=== PATIENT | female | born 1980 | race Caucasian/White ===

== ENCOUNTER 2016-08-08 14:39 | Inpatient (IN) | payer BC ==
[2016-08-08] MEDS ORDERED: HYDROCODONE/ACETAMINOPHEN 5-325 MG TABLET PO ONE (15:50)
--- NOTE | 2016-08-08 15:51 | ER Document Report ---
ED Medical Screen (RME) - General Stated Complaint: ABDOMINAL PAIN Mode of Arrival: Ambulatory Information source: Patient Notes: 35 y/o F presents to ED c/o LLQ abd pain since yesterday evening. Denies fever, n/v, hematuria, or blood in stool. I have greeted and performed a rapid initial assessment of this patient. A comprehensive ED assessment and evaluation of the patient, analysis of test results and completion of the medical decision making process will be conducted by additional ED providers. TRAVEL OUTSIDE OF THE [place] IN LAST 30 DAYS: No - Related Data Allergies/Adverse Reactions: No Known Allergies Allergy (Verified 08/08/16 15:48) Past Medical History - Past Medical History Cardiac Medical History: Denies: Hx Atrial Fibrillation, Hx Congestive Heart Failure, Hx Coronary Artery Disease, Hx Heart Attack, Hx Hypercholesterolemia, Hx Hypertension, Hx Peripheral Vascular Disease, Hx Heart Murmur Renal/ Medical History: Denies: Hx Ovarian Cysts, Hx Pelvic Inflammatory Disease Malignancy Medical History: Denies: Hx Breast Cancer, Hx Cervical Cancer, Hx Ovarian Cancer Past Surgical History: Reports: Hx Tonsillectomy. Denies: Hx Appendectomy, Hx Bowel Surgery, Hx Section, Hx Cholecystectomy, Hx Coronary Artery Bypass Graft, Hx Gastric Bypass Surgery, Hx Herniorrhaphy, Hx Hysterectomy, Hx Mastectomy, Hx Pacemaker, Hx Tubal Ligation - Immunizations Hx Diphtheria, Pertussis, Tetanus Vaccination: Yes Physical Exam - Vital signs Vitals: Temp Pulse Resp BP Pulse Ox 98.9 F 105 H 20 139/79 H 98 08/08/16 15:21 08/08/16 15:21 08/08/16 15:21 08/08/16 15:21 08/08/16 15:21 - General General appearance: Alert In distress: None - Respiratory Respiratory status: No respiratory distress Course - Vital Signs Vital signs: Temp Pulse Resp BP Pulse Ox 98.9 F 105 H 20 139/79 H 98 08/08/16 15:21 08/08/16 15:21 08/08/16 15:21 08/08/16 15:21 08/08/16 15:21
[2016-08-08] MEDS ORDERED: ONDANSETRON 4 MG TAB.RAPDIS PO ONE (16:06)
[2016-08-08 16:44] LABS: ABSOLUTE BASOPHILS # (AUTO) 0.1 10^3/uL (0.0-0.2); ABSOLUTE EOSINOPHILS # (AUTO) 0.1 10^3/uL (0.0-0.6); ABSOLUTE LYMPHOCYTES (AUTO) 1.8 10^3/uL (0.5-4.7); ABSOLUTE MONOCYTES (AUTO) 0.8 10^3/uL (0.1-1.4); ABSOLUTE NEUT (AUTO) 12.6 10^3/uL (1.7-8.2); BASOPHILS % (AUTO) 0.4 % (0-2); EOSINOPHILS % (AUTO) 0.4 % (0-6); LYMPHOCYTES % (AUTO) 11.6 % (13-45); MEAN CORPUSCULAR HEMOGLOBIN 27.1 pg (27.0-33.4); MEAN CORPUSCULAR HGB CONC 33.4 g/dL (32.0-36.0); MEAN CORPUSCULAR VOLUME 81 fl (80-97); MONOCYTES % (AUTO) 5.5 % (3-13); RED BLOOD COUNT 5.18 10^6/uL (3.72-5.28); RED CELL DISTRIBUTION WIDTH 14.4 % (11.5-14.0); SEGMENTED NEUTROPHILS % (AUTO) 82.1 % (42-78); WHITE BLOOD COUNT 15.3 10^3/uL (4.0-10.5)
[2016-08-08 16:50] LABS: APPEARANCE,URINE SLIGHTLY-CLOUDY; BILIRUBIN,URINE NEGATIVE (NEGATIVE); GLUCOSE, URINE NEGATIVE (NEGATIVE); KETONES,URINE NEGATIVE (NEGATIVE); LEUKOCYTE ESTERASE,URINE MODERATE (NEGATIVE); NITRITE,URINE NEGATIVE (NEGATIVE); PROTEIN,URINE NEGATIVE (NEGATIVE); URINE SPECIFIC GRAVITY 1.021; UROBILINOGEN,URINE NEGATIVE mg/dL (<2.0)
[2016-08-08 17:02] LABS: ALANINE AMINOTRANSFERASE 37 U/L (9-52); ALBUMIN 3.9 g/dL (3.5-5.0); ALKALINE PHOSPHATASE 86 U/L (38-126); ANION GAP 12 (5-19); ASPARTATE AMINO TRANSFERASE 21 U/L (14-36); BILIRUBIN,TOTAL 0.5 mg/dL (0.2-1.3); BLOOD UREA NITROGEN 11 mg/dL (7-20); CALCIUM 9.5 mg/dL (8.4-10.2); CARBON DIOXIDE 26 mmol/L (22-30); CHLORIDE 101 mmol/L (98-107); GLUCOSE 90 mg/dL (75-110); LIPASE 44.3 U/L (23-300); POTASSIUM 4.2 mmol/L (3.6-5.0); SODIUM 138.8 mmol/L (137-145); TOTAL PROTEIN 7.5 g/dL (6.3-8.2)
[2016-08-08] MEDS ORDERED: KETOROLAC TROMETHAMINE INJ/PF 30 MG/1 ML SDV IV ONE (17:45)
[2016-08-08] MEDS ORDERED: ONDANSETRON HCL INJ/PF 4 MG/2 ML SDV IV ONE (17:46)
--- NOTE | 2016-08-08 17:57 | ER Document Report ---
ED GI/ - General Chief Complaint: Possible Kidney Stone Stated Complaint: ABDOMINAL PAIN Mode of Arrival: Ambulatory Notes: Patient is complaining of pain in the left lower quadrant of her abdomen that goes around towards the midline suprapubic area, but not to the right of the midline since yesterday. Has never experiences pain before. It's constant and sharp. She is not had any nausea or vomiting or diarrhea. Her last bowel movement was at noon today and it was normal. No blood in stools. Has never been diagnosed with any gastrointestinal disorders such as colitis, diverticulitis, etc. Did have some blood in her stool 10 years ago and had a colonoscopy and some polyps removed. Has not had any follow-up studies. Patient denies any UTI symptoms and no history of kidney stones. Has not noted any fever. LMP July 07. On no control. Surgery to remove a fibroid from her uterus in December,. TRAVEL OUTSIDE OF THE [place] IN LAST 30 DAYS: No - Related Data Allergies/Adverse Reactions: No Known Allergies Allergy (Verified 08/08/16 15:48) Past Medical History - General Information source: Patient - Social History Smoking Status: Never Smoker Chew tobacco use (# tins/day): No Frequency of alcohol use: None Drug Abuse: None Family History: Reviewed & Not Pertinent Patient has suicidal ideation: No Patient has homicidal ideation: No Malignancy Medical History: Denies: Hx Cervical Cancer, Hx Ovarian Cancer GI Medical History: Reports: Hx Colonoscopy - Found polyps in 2006. Denies: Hx Ulcerative Colitis Past Surgical History: Reports: Hx Gynecologic Surgery - Removal of fibroid 2015, Hx Tonsillectomy - Immunizations Hx Diphtheria, Pertussis, Tetanus Vaccination: Yes Review of Systems - Review of Systems Notes: REVIEW OF SYSTEMS: CONSTITUTIONAL : Denies fever. EENT: Denies eye, ear, nose or mouth or throat pain or other symptoms. CARDIOVASCULAR: Denies chest pain. RESPIRATORY: Denies cough, chest congestion, or shortness of breath. GASTROINTESTINAL: See history of present illness. GENITOURINARY: Denies difficulty or painful urinating, urinary frequency, blood in urine. MUSCULOSKELETAL: Denies back or neck pain. Denies joint pain or swelling. SKIN: Denies rash or skin lesions. NEUROLOGICAL: Denies LOC or altered mental status. Denies headache. Denies sensory loss or motor deficits. ALL OTHER SYSTEMS REVIEWED AND NEGATIVE. Physical Exam - Vital signs Vitals: Temp Pulse Resp BP Pulse Ox 98.9 F 105 H 20 139/79 H 98 08/08/16 15:21 08/08/16 15:21 08/08/16 15:21 08/08/16 15:21 08/08/16 15:21 Interpretation: Normal, Tachycardic - Minimal at 105. - Notes Notes: PHYSICAL EXAMINATION: GENERAL: Well-appearing, in no acute distress. Appears to be uncomfortable to move. Holding left lower quadrant. Vital signs are normal except for heart rate 105. Afebrile. HEAD: Atraumatic, normocephalic. NECK: Normal range of motion, supple. LUNGS: Breath sounds clear and equal bilaterally. HEART: Regular rate and rhythm without murmurs. ABDOMEN: Tender in the left lower quadrant of the abdomen with some guarding. No rebound. No masses felt. BACK: No tenderness throughout entire back. EXTREMITIES: Normal range of motion without pain. SKIN: Warm, dry, no rashes. Course - Re-evaluation Re-evalutation: 08/08/16 21:[address] Joaquin, who is on-call for surgery, and he will be seeing the patient. Antibiotics are being started. More pain medications administered. - Vital Signs Vital signs: Temp Pulse Resp BP Pulse Ox 98.9 F 105 H 20 139/79 H 98 08/08/16 15:21 08/08/16 15:21 08/08/16 15:21 08/08/16 15:21 08/08/16 15:21 - Laboratory Result Diagrams: 08/08/16 16:28 08/08/16 16:28 Laboratory results interpreted by me: 08/08/16 08/08/16 16:28 16:28 WBC 15.3 H RDW 14.4 H Seg Neutrophils % 82.1 H Lymphocytes % 11.6 L Absolute Neutrophils 12.6 H Ur Leukocyte Esterase MODERATE H - Diagnostic Test Radiology reviewed: Image reviewed, Reports reviewed - CT scan of abdomen and pelvis shows diverticulitis of the left descending colon with possible air leakage consistent with a small perforation. Discharge - Discharge Clinical Impression: Diverticulitis of intestine Qualifiers: Diverticulitis site: large intestine Diverticulitis bleeding: without bleeding Diverticulitis complication: with perforation Qualified Code(s): K57.20 - Diverticulitis of large intestine with perforation and abscess without bleeding Condition: Stable Disposition: ADMITTED INPATIENT Admitting Provider: Surgicalist Unit Admitted: Surgical Floor
[2016-08-08] MEDS ORDERED: AMPICILLIN SOD/SULBACTAM 3 GM VIAL IV ONE (21:17)
[2016-08-08] MEDS ORDERED: MORPHINE SULFATE 10 MG/ML INJ IV ONE (21:17)
[2016-08-08] MEDS ORDERED: OXYCODONE-ACETAMINOPHEN 5-325 MG TABLET PO PRN (21:41)
[2016-08-08] MEDS: AMPICILLIN SODIUM/SULBACTAM NA 3 GM in NORMAL SALINE 100 ML IV SCH (22:32)
--- NOTE | 2016-08-08 23:33 | HISTORY AND PHYSICAL E ---
History and Physical NAME: WESTON YUSUF : 1980 AGE: 35Y ADMITTED: 08/08/2016 ROOM: ED41 CHIEF COMPLAINT: Acute diverticulitis with perforation. HISTORY OF PRESENT ILLNESS: The patient is a 35-year-old white female previously healthy with acute onset left lower quadrant abdominal pain associated with some anorexia. No nausea or vomiting. Last bowel movement today normal. She denies history of previous episodes, or other gastrointestinal problems. She did have a remote history of a GI bleed 10 years ago and underwent colonoscopy with polyp removal. In the emergency department, she had tenderness localized over the left lower quadrant, and leukocytosis at 15,000. She underwent CT scan of the abdomen and pelvis with IV and oral contrast and was found to have evidence of acute diverticulitis of sigmoid colon with pericolonic perforation, contained. She was advised admission to the surgical service. PAST MEDICAL HISTORY: Significant for: 1. Colon polyp. 2. Fibroid uterus. PAST SURGICAL HISTORY: Significant for myomectomy of the uterus by Dr. Mason December 2015. ALLERGIES: None known. MEDICATIONS: None. LOCAL MEDICAL DOCTOR: None. SOCIAL HISTORY: Patient does not smoke or drink. IMMUNIZATIONS: Up to date. REVIEW OF SYSTEMS: CONSTITUTIONAL: Patient denies. CARDIOVASCULAR: Patient denies. RESPIRATORY: Patient denies. GASTROINTESTINAL: As per HPI. GENITOURINARY: Patient denies. PHYSICAL EXAMINATION: Patient examined in the emergency department VITAL SIGNS: Heart rate is 88, other vital signs stable. GENERAL: No acute distress. HEAD/EYES: Without icterus. NECK: No adenopathy. LUNGS: Clear to auscultation bilaterally. HEART: Without murmur or gallop. ABDOMEN: Soft but it is tender in the left lower quadrant with guarding. Bowel sounds hypoactive. EXTREMITIES: Without deformity. SKIN: Warm and dry. LABORATORY PROFILE: White blood cell count 15,000, hemoglobin of 14. Electrolytes within normal limits. Urinalysis unremarkable. DIAGNOSTICS: CT scan of the abdomen and pelvis with IV and with oral contrast shows no evidence of abscess; endometrial fibroid. Pericolonic gas around the sigmoid colon laterally with inflammatory changes. There is no evidence of obstruction. IMPRESSION: 1. Acute diverticulitis complicated by pericolonic air consistent with limited perforation. 2. Uterine fibroid. RECOMMENDATIONS: The patient will be admitted to the surgical service, kept n.p.o. on IV fluids, intravenous antibiotics and followed clinically. Should her clinical course deteriorate, emergent surgery may be required. This was explained to the patient and her . They both understood and agreed to proceed. DICTATING PHYSICIAN: BRUCE CARRENO M.D. [id number] PHY#: [id number] ID: [id number] JOB#: [id number] ACCT: [id number] cc:Jorge SHEPPARD MD, M.D. > MTDD
[2016-08-09] MEDS: RINGERS SOLUTION,LACTATED 1,000 ML IV PRN ×2 (01:28→21:29)
[2016-08-09] MEDS: ONDANSETRON HCL INJ/PF 4 MG/2 ML SDV IV PRN ×3 (03:52→17:18)
[2016-08-09] MEDS: OXYCODONE-ACETAMINOPHEN 5-325 MG TABLET PO PRN ×3 (03:52→17:17)
[2016-08-09] MEDS ORDERED: AMPICILLIN SOD/SULBACTAM 3 GM VIAL ONE (05:41)
[2016-08-09] MEDS: AMPICILLIN SODIUM/SULBACTAM NA 3 GM in NORMAL SALINE 100 ML IV SCH ×3 (05:57→21:29)
--- NOTE | 2016-08-09 10:09 | PDOC PROGRESS REPORT ---
Subjective Progress Note for:: 08/09/16 Subjective:: c/o pain lower abdomen, mostly left side. Also some nausea. Physical Exam Vital Signs: Temp Pulse Resp BP Pulse Ox 97.7 F 104 H 18 112/57 L 96 08/09/16 07:12 08/09/16 07:12 08/09/16 07:12 08/09/16 07:12 08/09/16 07:12 Intake & Output 08/08/16 08/09/16 08/10/16 06:59 06:59 06:59 Intake Total 240 Output Total 100 Balance 140 Weight 64.7 kg GI/Abdominal exam: PRESENT: ascites, diminished bowel sounds, distended, firm, guarding, hernia, hyperactive bowel sounds, hypoactive bowel sounds, mass, Hernandez's sign, normal bowel sounds, organolmegaly, rebound, rigid, soft, tenderness, other - tenderness lower abdomen , with localized rebound. Results Impressions: Abdomen/Pelvis CT 08/08/16 00:00 IMPRESSION: Diverticulitis in the lower descending colon with small foci of extraluminal gas adjacent to the inflamed diverticulum. No focal abscess. Small amounts of pelvic free fluid. Consider surgical consultation/follow-up. Assessment & Plan - Plan Summary Plan Summary: Acute Diverticulitis with localized perforation, still has pain and tenderness, continue trial of conservative therapy with IV antibiotics if no progress or deteriorates - for surgery D/W PATIENT.
[2016-08-09 11:30] LABS: ABSOLUTE LYMPHOCYTES (AUTO) 1.1 10^3/uL (0.5-4.7); ABSOLUTE NEUT (AUTO) 14.2 10^3/uL (1.7-8.2); BASOPHILS % (AUTO) 0.1 % (0-2); EOSINOPHILS % (AUTO) 0.1 % (0-6); HEMATOCRIT 37.3 % (36.0-47.0); HEMOGLOBIN 12.1 g/dL (12.0-15.5); LYMPHOCYTES % (AUTO) 6.7 % (13-45); MEAN CORPUSCULAR HEMOGLOBIN 26.4 pg (27.0-33.4); MEAN CORPUSCULAR HGB CONC 32.5 g/dL (32.0-36.0); MEAN CORPUSCULAR VOLUME 81 fl (80-97); MONOCYTES % (AUTO) 6.1 % (3-13); RED CELL DISTRIBUTION WIDTH 14.1 % (11.5-14.0); WHITE BLOOD COUNT 16.4 10^3/uL (4.0-10.5)
[2016-08-09 11:48] LABS: ANION GAP 11 (5-19); BLOOD UREA NITROGEN 6 mg/dL (7-20); CALCIUM 8.4 mg/dL (8.4-10.2); CARBON DIOXIDE 24 mmol/L (22-30); CHLORIDE 102 mmol/L (98-107); CREATININE RESULT 0.56 mg/dL (0.52-1.25); GLUCOSE 84 mg/dL (75-110); POTASSIUM 3.6 mmol/L (3.6-5.0); SODIUM 137.1 mmol/L (137-145)
[2016-08-10] MEDS: AMPICILLIN SODIUM/SULBACTAM NA 3 GM in NORMAL SALINE 100 ML IV SCH ×2 (05:29→15:09)
[2016-08-10] MEDS: RINGERS SOLUTION,LACTATED 1,000 ML IV PRN ×2 (05:29→14:59)
[2016-08-10] MEDS: OXYCODONE-ACETAMINOPHEN 5-325 MG TABLET PO PRN (05:31)
[2016-08-10] MEDS: ONDANSETRON HCL INJ/PF 4 MG/2 ML SDV IV PRN (05:32)
[2016-08-10 10:29] LABS: ABSOLUTE EOSINOPHILS # (AUTO) 0.1 10^3/uL (0.0-0.6); ABSOLUTE LYMPHOCYTES (AUTO) 1.5 10^3/uL (0.5-4.7); ABSOLUTE MONOCYTES (AUTO) 0.6 10^3/uL (0.1-1.4); BASOPHILS % (AUTO) 0.1 % (0-2); EOSINOPHILS % (AUTO) 0.7 % (0-6); HEMATOCRIT 34.1 % (36.0-47.0); HEMOGLOBIN 11.3 g/dL (12.0-15.5); HGB HCT DIFFERENCE -0.2; LYMPHOCYTES % (AUTO) 13.4 % (13-45); MEAN CORPUSCULAR VOLUME 82 fl (80-97); MONOCYTES % (AUTO) 5.7 % (3-13); RED BLOOD COUNT 4.17 10^6/uL (3.72-5.28); RED CELL DISTRIBUTION WIDTH 14.2 % (11.5-14.0); SEGMENTED NEUTROPHILS % (AUTO) 80.1 % (42-78); WHITE BLOOD COUNT 11.3 10^3/uL (4.0-10.5)
--- NOTE | 2016-08-10 13:14 | PDOC PROGRESS REPORT ---
Subjective Progress Note for:: 08/10/16 Subjective:: Still has Abdominal painleft Physical Exam Vital Signs: Temp Pulse Resp BP Pulse Ox 98.1 F 68 20 101/55 L 98 08/10/16 09:00 08/10/16 09:00 08/10/16 09:00 08/10/16 09:00 08/10/16 09:00 Intake & Output 08/09/16 08/10/16 08/11/16 06:59 06:59 06:59 Intake Total 0 Output Total 1200 Balance -1200 Weight 64.7 kg GI/Abdominal exam: PRESENT: other - severe localized tenderness left lower quadrant. Results Laboratory Results: 08/10/16 10:13 08/10/16 10:13 WBC 11.3 H RBC 4.17 Hgb 11.3 L Hct 34.1 L MCV 82 MCH 27.0 MCHC 33.0 RDW 14.2 H Plt Count 211 Seg Neutrophils % 80.1 H Lymphocytes % 13.4 Monocytes % 5.7 Eosinophils % 0.7 Basophils % 0.1 Absolute Neutrophils 9.0 H Absolute Lymphocytes 1.5 Absolute Monocytes 0.6 Absolute Eosinophils 0.1 Absolute Basophils 0.0 Impressions: Abdomen/Pelvis CT 08/08/16 00:00 IMPRESSION: Diverticulitis in the lower descending colon with small foci of extraluminal gas adjacent to the inflamed diverticulum. No focal abscess. Small amounts of pelvic free fluid. Consider surgical consultation/follow-up. Assessment & Plan - Plan Summary Plan Summary: Stable , not much progress , possible surgery if no further progress.
[2016-08-10 14:14] LABS: ANION GAP 10 (5-19); BLOOD UREA NITROGEN 5 mg/dL (7-20); CALCIUM 8.7 mg/dL (8.4-10.2); CARBON DIOXIDE 25 mmol/L (22-30); CHLORIDE 104 mmol/L (98-107); CREATININE RESULT 0.54 mg/dL (0.52-1.25); GLUCOSE 71 mg/dL (75-110); SODIUM 138.5 mmol/L (137-145)
[2016-08-10 14:56] LABS: ABSOLUTE LYMPHOCYTES (AUTO) 1.1 10^3/uL (0.5-4.7); ABSOLUTE MONOCYTES (AUTO) 0.4 10^3/uL (0.1-1.4); ABSOLUTE NEUT (AUTO) 12.5 10^3/uL (1.7-8.2); BASOPHILS % (AUTO) 0.1 % (0-2); EOSINOPHILS % (AUTO) 0.3 % (0-6); HEMATOCRIT 35.6 % (36.0-47.0); HEMOGLOBIN 11.8 g/dL (12.0-15.5); HGB HCT DIFFERENCE -0.2; MEAN CORPUSCULAR HEMOGLOBIN 27.1 pg (27.0-33.4); MEAN CORPUSCULAR HGB CONC 33.2 g/dL (32.0-36.0); MEAN CORPUSCULAR VOLUME 82 fl (80-97); MONOCYTES % (AUTO) 2.6 % (3-13); RED BLOOD COUNT 4.36 10^6/uL (3.72-5.28); RED CELL DISTRIBUTION WIDTH 14.1 % (11.5-14.0)
[2016-08-10] MEDS ORDERED: OXYCODONE-ACETAMINOPHEN 5-325 MG TABLET ONE (18:15)
[2016-08-10] MEDS ORDERED: ONDANSETRON HCL INJ/PF 4 MG/2 ML SDV ONE (18:15)
[2016-08-10] MEDS ORDERED: OXYCODONE-ACETAMINOPHEN 5-325 MG TABLET PO PRN ×2 (21:13→21:14)
[2016-08-10] MEDS ORDERED: MAGNESIUM CITRATE 296 ML BOTTLE PO ONE (22:00)
[2016-08-11] MEDS: RINGERS SOLUTION,LACTATED 1,000 ML IV PRN ×2 (00:45→09:57)
[2016-08-11] MEDS: AMPICILLIN SODIUM/SULBACTAM NA 3 GM in NORMAL SALINE 100 ML IV SCH ×2 (00:48→06:34)
[2016-08-11 05:55] LABS: HEMATOCRIT 34.6 % (36.0-47.0); HEMOGLOBIN 11.5 g/dL (12.0-15.5); HGB HCT DIFFERENCE -0.1; MEAN CORPUSCULAR HEMOGLOBIN 26.9 pg (27.0-33.4); MEAN CORPUSCULAR HGB CONC 33.3 g/dL (32.0-36.0); MEAN CORPUSCULAR VOLUME 81 fl (80-97); RED BLOOD COUNT 4.28 10^6/uL (3.72-5.28); RED CELL DISTRIBUTION WIDTH 14.2 % (11.5-14.0); WHITE BLOOD COUNT 10.8 10^3/uL (4.0-10.5)
[2016-08-11 06:24] LABS: ANION GAP 10 (5-19); BLOOD UREA NITROGEN 3 mg/dL (7-20); CARBON DIOXIDE 27 mmol/L (22-30); CHLORIDE 104 mmol/L (98-107); CREATININE RESULT 0.49 mg/dL (0.52-1.25); GLUCOSE 84 mg/dL (75-110); POTASSIUM 3.7 mmol/L (3.6-5.0); SODIUM 140.5 mmol/L (137-145)
[2016-08-11] MEDS ORDERED: GLYCOPYRROLATE INJ 0.4 MG/2 ML VIAL ONE (08:21)
[2016-08-11] MEDS ORDERED: METOCLOPRAMIDE HCL INJ/PF 10 MG/2 ML SDV ONE (08:21)
[2016-08-11] MEDS ORDERED: NEOSTIGMINE METHYLSULFATE 10 MG/10 ML VIAL ONE (08:21)
[2016-08-11] MEDS ORDERED: ROCURONIUM BROMIDE INJ 50 MG/5 ML VIAL IV ONE (08:21)
[2016-08-11] MEDS ORDERED: DEXAMETHASONE SOD PHOSPHATE INJ 4 MG/1 ML VIAL ONE (08:21)
[2016-08-11] MEDS ORDERED: SUCCINYLCHOLINE CHLORIDE INJ 200 MG/10 ML VIAL ONE (08:21)
[2016-08-11] MEDS ORDERED: LIDOCAINE 2% INJ-PF (20 MG/ML) 10 ML AMPUL ONE (08:21)
[2016-08-11] MEDS ORDERED: ACETAMINOPHEN 100 ML IV ONE (12:20)
[2016-08-11] MEDS ORDERED: PROPOFOL INJ 200 MG/20 ML VIAL IV ONE ×2 (12:20→12:22)
[2016-08-11] MEDS ORDERED: HYDROMORPHONE HCL INJ/PF 2 MG/ML AMPULE ONE (12:20)
[2016-08-11] MEDS ORDERED: MIDAZOLAM 2 MG/2 ML INJ ONE (12:20)
[2016-08-11] MEDS ORDERED: FENTANYL CITRATE INJ/PF 100 MCG/2 ML AMPUL IV PRN ×3 (16:10)
[2016-08-11] MEDS ORDERED: MORPHINE SULFATE 10 MG/ML INJ IV PRN (16:10)
[2016-08-11] MEDS ORDERED: ONDANSETRON HCL INJ/PF 4 MG/2 ML SDV IV PRN ×2 (16:10→18:41)
[2016-08-11] MEDS ORDERED: DIPHENHYDRAMINE HCL 50 MG/ML VIAL IV PRN (16:10)
[2016-08-11] MEDS ORDERED: MEPERIDINE HCL/PF INJ 25 MG/1 ML DISP.SYRIN IV PRN (16:10)
[2016-08-11] MEDS ORDERED: PROMETHAZINE HCL INJ 25 MG/1 ML VIAL IV PRN ×2 (16:10)
[2016-08-11] MEDS ORDERED: OXYCODONE-ACETAMINOPHEN 5-325 MG TABLET PO PRN ×2 (16:10)
[2016-08-11] MEDS ORDERED: HYDROMORPHONE HCL 30 MG/60 ML RTUINJ IV PRN (18:36)
[2016-08-11] MEDS: KETOROLAC TROMETHAMINE INJ/PF 30 MG/1 ML SDV IV PRN (20:28)
[2016-08-11] MEDS: ONDANSETRON HCL INJ/PF 4 MG/2 ML SDV IV PRN (20:30)
[2016-08-11] MEDS: POTASSI CL 20 MEQ/1/2NS 1L 1000 ML IV PRN (22:10)
[2016-08-12] MEDS ORDERED: PIPERACILLIN/TAZOBACTAM 3.375 GM VIAL IV ONE ×2 (00:37→05:35)
[2016-08-12] MEDS: HYDROMORPHONE HCL INJ/PF 2 MG/ML AMPULE IV PRN ×3 (00:48→06:20)
[2016-08-12] MEDS: PIPERACILLIN SODIUM/TAZOBACTAM 3.375 GM in NORMAL SALINE 100 ML IV SCH ×4 (00:48→18:07)
[2016-08-12] MEDS: ONDANSETRON HCL INJ/PF 4 MG/2 ML SDV IV PRN ×5 (00:48→22:54)
--- NOTE | 2016-08-12 06:49 | PDOC PROGRESS REPORT ---
Subjective Progress Note for:: 08/12/16 Subjective:: Pain under control Physical Exam Vital Signs: Temp Pulse Resp BP Pulse Ox 98.1 F 95 20 115/59 L 99 08/12/16 04:22 08/12/16 04:22 08/12/16 04:22 08/12/16 04:22 08/12/16 04:22 Intake & Output 08/10/16 08/11/16 08/12/16 06:59 06:59 06:59 Intake Total 0 320 6600 Output Total 1327 514 3406 Balance -1200 -330 2150 Weight 64.7 kg 64.7 kg GI/Abdominal exam: PRESENT: other - Soft abdomen CHELSY serous Results Laboratory Results: 08/11/16 05:05 08/11/16 05:05 08/11/16 05:05 Blood Type A POSITIVE Antibody Screen NEGATIVE Impressions: Abdomen/Pelvis CT 08/08/16 00:00 IMPRESSION: Diverticulitis in the lower descending colon with small foci of extraluminal gas adjacent to the inflamed diverticulum. No focal abscess. Small amounts of pelvic free fluid. Consider surgical consultation/follow-up. Assessment & Plan - Plan Summary Plan Summary: s/p left colon resection laparoscopic Stable Ambulate PO clears.
[2016-08-12 07:26] LABS: HEMATOCRIT 24.2 % (36.0-47.0); HGB HCT DIFFERENCE -0.2; MEAN CORPUSCULAR HEMOGLOBIN 26.5 pg (27.0-33.4); MEAN CORPUSCULAR HGB CONC 33.2 g/dL (32.0-36.0); MEAN CORPUSCULAR VOLUME 80 fl (80-97); RED BLOOD COUNT 3.03 10^6/uL (3.72-5.28); RED CELL DISTRIBUTION WIDTH 13.6 % (11.5-14.0); WHITE BLOOD COUNT 12.3 10^3/uL (4.0-10.5)
[2016-08-12 07:38] LABS: ANION GAP 8 (5-19); BLOOD UREA NITROGEN 3 mg/dL (7-20); CALCIUM 7.9 mg/dL (8.4-10.2); CARBON DIOXIDE 24 mmol/L (22-30); CHLORIDE 104 mmol/L (98-107); GLUCOSE 123 mg/dL (75-110); POTASSIUM 4.1 mmol/L (3.6-5.0); SODIUM 136.2 mmol/L (137-145)
[2016-08-12] MEDS: ENOXAPARIN SODIUM INJ 40 MG/0.4 ML DISP.SYRIN SUBCUT SCH (08:24)
--- NOTE | 2016-08-12 11:40 | OPERATIVE REPORT E ---
Operative Report NAME: WESTON YUSUF : 1980 AGE: 35Y DATE OF SURGERY: 08/09/2016 ROOM: 413 PREOPERATIVE DIAGNOSES: 1. Severe diverticulitis. 2. Microperforation. 3. Unresolving pain. 4. Failed medical therapy. POSTOPERATIVE DIAGNOSES: 1. Paracolic abscess. 2. Diverticulitis with localized perforation. OPERATION: 1. Laparoscopic resection of the descending colon and sigmoid colon with proximal descending colon to upper rectal anastomosis. 2. Laparoscopic drainage of paracolic abscess. 3. Lysis of adhesions. 4. Splenic flexure mobilization. 5. Intraoperative flexible sigmoidoscope. SURGEON: RUSSELL HUDSON M.D. ANESTHESIA: General. BLOOD LOSS: Less than 200 mL. SPECIMENS: Left colon. HISTORY AND INDICATIONS: Patient had some history of abdominal pain on and off possibly in the past. She also has diverticulitis extensively present with acute abdomen which revealed on a CT scan localized perforation. Initially put on conservative therapy with IV antibiotic therapy. She did not improve for the last 2 days, continued to have rebound tenderness, more pain, more tenderness. For that reason because of possibility of this getting worse, patient was taken to the operating room. She was also explained the possibility of ostomy and colostomy and re-operations. DESCRIPTION OF OPERATION: After induction of general anesthesia and placement of SCD boots, she was given antibiotic with Unasyn. Abdomen was cleansed and draped as a sterile field. Initial access was supraumbilical with 5 mm trocar and in 2 points on the right side of the abdomen and 5 mm trocar in the as well. Because she had a history of myomectomy and because of that, she had dense adhesions of the omentum and also of slenic flexure . After that, the phlegmon was identified. lateral to medial mobilization during which found the paracolic abscess on the left side which was drained without any further contamination. After that, lateral to medial mobilization completed, and the left ureter was identified and securely preserved. After that, in the same direction, splenic flexure at this point was completely mobilized by dividing the and the phrenicocolic ligaments. Also, pancratico colic ligaments were divided to be able to mobilize most of the splenic flexure that distal transverse colon completely elevated off. After that, the greater omentum was detached from the transverse colon from the splenic flexure all the way to the hepatic flexure area so that greater than . After that, dissection continued laterally onto the area. Now part of the rectum was dissected . It was again attached to the uterus. After lysing uterine adhesions between the uterus and the rectum, the rectum was freed up and circumferentially dissected around. Then lateral dissection was completed . After that,descending colon was diverted by using a circular 60 stapler. Then the rectum was completely mobilized, and she had a huge amount of phlegmon for that reason needed to partially opened up so suprapubic incision was extended for another 4 or 5 cm. One was placed, and then the rectum was dissected. Abdominal cavity irrigated and suctioned out. Then the patient had descending colon. For that reason, we went ahead with the primary anastomosis because she had . The anvil of the 25 stapler was inserted into the proximal descending colon, and it was secured in place, put back in the peritoneal cavity. Now the 25 stapler inserted into the anal canal. The midpoint of the staple line pin was brought out, and the pin anvil was engaged. After making sure the colon was , the stapler was closed and then intraoperative colonoscopy. Anastomotic staple line inspected with the colonoscopy which anastomosis. No air leaks. It was confirmed by insufflation of air around the anastomotic area after anastomotic area. The at the same time. Anastomotic staple line was then. After that, abdominal cavity was further irrigated and suctioned out, and then a J-P drain around the anastomotic area and brought out through one of the 5 mm trocars. Then after that, was placed in the abdominal cavity. The suprapubic incision was closed by using a 0 Vicryl for the peritoneum and looped PDS for the fascia, and the skin was closed with 4-0 Monocryl. Dry sterile dressing was applied. Patient was stable through the operation , transferred to recovery room in in stable condition. DICTATING PHYSICIAN: RUSSELL HUDSON M.D. [id number] PHY#: [id number] ID: [id number] JOB#: [id number] ACCT: [id number] cc:RUSSELL HUDSON M.D. > [facility]
--- NOTE | 2016-08-12 21:36 | PDOC PROGRESS REPORT ---
Subjective Subjective:: No nausea, vomiting, flatus, bowel movement. Physical Exam Vital Signs: Temp Pulse Resp BP Pulse Ox 98.8 F 122 H 20 113/53 L 95 08/12/16 20:15 08/12/16 20:15 08/12/16 20:15 08/12/16 20:15 08/12/16 20:15 Intake & Output 08/11/16 08/12/16 08/13/16 06:59 06:59 06:59 Intake Total 320 6690 1020 Output Total 650 4850 1795 Balance -330 1840 -775 Weight 64.7 kg 64.7 kg General appearance: PRESENT: no acute distress Head exam: PRESENT: normocephalic GI/Abdominal exam: PRESENT: distended - Mild distention, soft, tenderness - . Mild tenderness., other - Incisions healing nicely. No bowel sounds.. ABSENT: guarding, rebound Neurological exam: PRESENT: alert, oriented to situation Skin exam: ABSENT: jaundice Results Laboratory Results: 08/12/16 06:46 08/12/16 06:46 08/12/16 08/12/16 06:46 06:46 WBC 12.3 H RBC 3.03 L Hgb 8.0 L D Hct 24.2 L MCV 80 MCH 26.5 L MCHC 33.2 RDW 13.6 Plt Count 344 Sodium 136.2 L Potassium 4.1 Chloride 104 Carbon Dioxide 24 Anion Gap 8 BUN 3 L Creatinine 0.50 L Est GFR ( Amer) > 60 Est GFR (Non-Af Amer) > 60 Glucose 123 H Calcium 7.9 L Impressions: Abdomen/Pelvis CT 08/08/16 00:00 IMPRESSION: Diverticulitis in the lower descending colon with small foci of extraluminal gas adjacent to the inflamed diverticulum. No focal abscess. Small amounts of pelvic free fluid. Consider surgical consultation/follow-up. Assessment & Plan - Diagnosis (1) Perforation of sigmoid colon due to diverticulitis Is this a current diagnosis for this admission?: YesPlan: Postop day 1 from laparoscopic sigmoid resection for perforated diverticulitis. Continue clear liquids. Continue Lovenox, SCDs, incentive spirometer, ambulation, IV antibiotics. (2) Abscess of sigmoid colon due to diverticulitis Is this a current diagnosis for this admission?: Yes
[2016-08-12] MEDS: KETOROLAC TROMETHAMINE INJ/PF 30 MG/1 ML SDV IV PRN (22:53)
[2016-08-13] MEDS: PIPERACILLIN SODIUM/TAZOBACTAM 3.375 GM in NORMAL SALINE 100 ML IV SCH ×4 (00:37→20:04)
[2016-08-13] MEDS: POTASSI CL 20 MEQ/1/2NS 1L 1000 ML IV PRN ×2 (03:11→20:06)
[2016-08-13] MEDS: ENOXAPARIN SODIUM INJ 40 MG/0.4 ML DISP.SYRIN SUBCUT SCH (09:22)
[2016-08-13] MEDS: KETOROLAC TROMETHAMINE INJ/PF 30 MG/1 ML SDV IV PRN (09:45)
[2016-08-13] MEDS: ONDANSETRON HCL INJ/PF 4 MG/2 ML SDV IV PRN (09:46)
[2016-08-13 10:38] LABS: HEMATOCRIT 19.6 % (36.0-47.0); HGB HCT DIFFERENCE 0.5; MEAN CORPUSCULAR HEMOGLOBIN 27.6 pg (27.0-33.4); MEAN CORPUSCULAR HGB CONC 34.2 g/dL (32.0-36.0); MEAN CORPUSCULAR VOLUME 81 fl (80-97); RED BLOOD COUNT 2.43 10^6/uL (3.72-5.28); RED CELL DISTRIBUTION WIDTH 13.9 % (11.5-14.0); WHITE BLOOD COUNT 9.9 10^3/uL (4.0-10.5)
[2016-08-13 10:57] LABS: HEMOGLOBIN 6.7 g/dL (12.0-15.5)
[2016-08-13 11:05] LABS: ANION GAP 9 (5-19); BLOOD UREA NITROGEN 5 mg/dL (7-20); CARBON DIOXIDE 25 mmol/L (22-30); CHLORIDE 104 mmol/L (98-107); CREATININE RESULT 0.59 mg/dL (0.52-1.25); GLUCOSE 122 mg/dL (75-110); POTASSIUM 3.6 mmol/L (3.6-5.0); SODIUM 137.9 mmol/L (137-145)
--- NOTE | 2016-08-13 11:13 | PROGRESS NOTE E ---
Progress Note NAME: WESTON YUSUF : 1980 AGE: 35Y DATE: 08/13/2016 ROOM: 209 SUBJECTIVE: The patient is postoperative day 3 status post laparoscopic colectomy for perforated diverticulitis. OBJECTIVE: She is afebrile with stable vital signs. She is alert and appropriate and without complaint. Her bowels have moved. She is ambulating in the hallway with clear lungs and abdomen, which is soft. Her wounds are stable. Her Gonzalez-Sadler drain has only mild serosanguineous change as expected. PLAN: Plan will be to shower today and we will continue current diet status and start a clear liquid diet in the a.m. She continues on IV antibiotic therapy with Zosyn. She has continued improvement with still resolution of the bowel function. DICTATING PHYSICIAN: LUCILA THAYER M.D. [id number] PHY#: [id number] ID: [id number] JOB#: [id number] ACCT: [id number] cc: >
[2016-08-14] MEDS: PIPERACILLIN SODIUM/TAZOBACTAM 3.375 GM in NORMAL SALINE 100 ML IV SCH ×3 (01:35→11:55)
[2016-08-14] MEDS: KETOROLAC TROMETHAMINE INJ/PF 30 MG/1 ML SDV IV PRN (03:44)
[2016-08-14] MEDS: ONDANSETRON HCL INJ/PF 4 MG/2 ML SDV IV PRN (03:44)
[2016-08-14 07:31] LABS: HEMATOCRIT 29.5 % (36.0-47.0); HGB HCT DIFFERENCE 0.2; MEAN CORPUSCULAR HGB CONC 33.7 g/dL (32.0-36.0); MEAN CORPUSCULAR VOLUME 83 fl (80-97); RED BLOOD COUNT 3.55 10^6/uL (3.72-5.28); WHITE BLOOD COUNT 10.3 10^3/uL (4.0-10.5)
[2016-08-14 07:40] LABS: ANION GAP 7 (5-19); BLOOD UREA NITROGEN 3 mg/dL (7-20); CALCIUM 8.4 mg/dL (8.4-10.2); CARBON DIOXIDE 29 mmol/L (22-30); CHLORIDE 106 mmol/L (98-107); CREATININE RESULT 0.57 mg/dL (0.52-1.25); GLUCOSE 91 mg/dL (75-110); POTASSIUM 3.8 mmol/L (3.6-5.0); SODIUM 142.2 mmol/L (137-145)
[2016-08-14 07:43] LABS: HEMOGLOBIN 9.9 g/dL (12.0-15.5)
[2016-08-14] MEDS: ENOXAPARIN SODIUM INJ 40 MG/0.4 ML DISP.SYRIN SUBCUT SCH (08:54)
[2016-08-14 16:11] VITALS: BP 110/60
--- NOTE | 2016-08-14 19:03 | DISCHARGE SUMMARY E ---
Discharge Summary NAME: WESTON YUSUF : 1980 AGE: 35Y ADMITTED: 08/09/2016 DISCHARGED: 08/14/2016 ADMITTING DIAGNOSIS: Perforated diverticulitis. DISCHARGE DIAGNOSIS: Status post laparoscopic sigmoid colectomy with primary anastomosis and Gonzalez-Sadler drainage. HOSPITAL COURSE: The patient was admitted via the emergency room and taken to the operating room where the above-noted procedure was undertaken without difficulty. She had very rapid resumption of bowel function. She was started on a clear liquid diet and advanced to a regular diet and is discharged *------* ambulatory, tolerating a regular diet, and having bowel movements with clean wounds. A Gonzalez-Sadler drain remains in place but she has been instructed on the usage and this should remain in place until she is seen in the office in approximately 5 days. She denied need for analgesia at the time of discharge and it is anticipated that she would take Advil or Advil should she had any abdominal discomfort, but she has not had any need for analgesia over the last 24 hours. She up, alert, appropriate, comfortable. Her wounds are clean. She will be discharged this afternoon at her request, and that is very reasonable with her normal bowel function and lack of any postoperative symptoms. DICTATING PHYSICIAN: LUCILA THAYER M.D. [id number] PHY#: [id number] ID: [id number] JOB#: [id number] ACCT: [id number] cc:[facility], JOHN MANCIA M.D, M.D., JAMES M.D. >
== END 2016-08-14 17:01 | disposition home or self-care (01) | DRG 330 ==
LOC: ER 14:39 → EH 21:34 → INTOOBSV 21:34 → UNDOADMOB 21:34 → EH 21:39 → 4N 08-09 00:33 → OBSVTOIN 08-09 16:29 → UNDODISIN 08-10 17:15 → 2N 08-12 22:40
PROVIDERS: ADMIT Surgery; ATTEND Surgery
PROC: 0DTM4ZZ Resection of Descending Colon, Percutaneous Endoscopic Approach (ICD-10-PCS; principal; 2016-08-09)
PROC: 0UN94ZZ Release Uterus, Percutaneous Endoscopic Approach (ICD-10-PCS; 2016-08-09)
PROC: 0DNS4ZZ (ICD-10-PCS; 2016-08-09)
PROC: 0W9F40Z Drainage of Abdominal Wall with Drainage Device, Percutaneous Endoscopic Approach (ICD-10-PCS; 2016-08-09)
PROC: 30233N1 Transfusion of Nonautologous Red Blood Cells into Peripheral Vein, Percutaneous Approach (ICD-10-PCS; 2016-08-13)
DX: K57.20 Diverticulitis of large intestine with perforation and abscess without bleeding (principal); N73.6 Female pelvic peritoneal adhesions (postinfective); K66.0 Peritoneal adhesions (postprocedural) (postinfection); Z86.010 Personal history of colon polyps
CPT/HCPCS: 36415; 36430; 74177; 790; 80048; 80053; 81001; 83690; 84703; 85025; 85027; 86850; 86900; 86901; 86920; 88307; 94799; 96374; 96375; 99285; C1765; G0378; J0131; J0295; J0330; J1100; J1170; J1650; J1885; J2250; J2270; J2405; J2543; J2704; J2765; J3480; J3490; J7120; P9016; S0119

== ENCOUNTER 2016-08-27 20:19 | Inpatient (IN) | payer BC ==
[2016-08-27] MEDS ORDERED: LEVOFLOXACIN 750 MG/D5W RTU 150 ML IV ONE (20:47)
[2016-08-27] MEDS ORDERED: NORMAL SALINE 1000 ML 1,000 ML IV ONE (20:48)
[2016-08-27] MEDS ORDERED: METRONIDAZOLE 500 MG/NS RTU 100 ML IV ONE (20:48)
[2016-08-27] MEDS ORDERED: MORPHINE SULFATE 10 MG/ML INJ IV PRN (21:03)
[2016-08-27] MEDS ORDERED: ONDANSETRON HCL INJ/PF 4 MG/2 ML SDV IV ONE (21:03)
--- NOTE | 2016-08-27 21:04 | ER Document Report ---
ED General - General Chief Complaint: Post Surgical Pain Stated Complaint: POST OP COMPLICATIONS Notes: Patient is a 35-year-old female who was admitted beginning of this month for perforated diverticulum requiring operative repair who presents from the surgery clinic with increasing abdominal pain over the last 3 days in association with fever. She had a fever up to 102F today. Laboratories and CT scan were obtained and she is referred to the emergency department for further evaluation. She does note a dull, constant, throbbing pain to her left lower abdomen that has been getting worse over the last 3 days. Nothing improves or worsens the pain. States she had not experienced this pain prior to the past 3 days. She's been treating her fever at home with Tylenol with appropriate response. Denies any dysuria, vomiting or diarrhea. TRAVEL OUTSIDE OF THE [place] IN LAST 30 DAYS: No - Related Data Allergies/Adverse Reactions: No Known Allergies Allergy (Verified 08/08/16 15:48) Past Medical History - General Information source: Patient - Social History Smoking Status: Never Smoker Frequency of alcohol use: None Drug Abuse: None Lives with: Spouse/Significant other Family History: Reviewed & Not Pertinent - Past Medical History Cardiac Medical History: Denies: Hx Atrial Fibrillation, Hx Congestive Heart Failure, Hx Coronary Artery Disease, Hx Heart Attack, Hx Hypercholesterolemia, Hx Hypertension, Hx Peripheral Vascular Disease, Hx Heart Murmur Renal/ Medical History: Denies: Hx Ovarian Cysts, Hx Peritoneal Dialysis, Hx Pelvic Inflammatory Disease Malignancy Medical History: Denies: Hx Breast Cancer, Hx Cervical Cancer, Hx Ovarian Cancer GI Medical History: Reports: Hx Colonoscopy - Found polyps in 2006. Denies: Hx Ulcerative Colitis Past Surgical History: Reports: Hx Gynecologic Surgery - Removal of fibroid 2015, Hx Tonsillectomy. Denies: Hx Appendectomy, Hx Bowel Surgery, Hx Section, Hx Cholecystectomy, Hx Coronary Artery Bypass Graft, Hx Gastric Bypass Surgery, Hx Herniorrhaphy, Hx Hysterectomy, Hx Mastectomy, Hx Pacemaker, Hx Tubal Ligation - Immunizations Hx Diphtheria, Pertussis, Tetanus Vaccination: Yes Review of Systems - Review of Systems Notes: Constitutional: Positive for fever. HENT: Negative for sore throat. Eyes: Negative for visual changes. Cardiovascular: Negative for chest pain. Respiratory: Negative for shortness of breath. Gastrointestinal: Positive for abdominal pain Genitourinary: Negative for dysuria. Musculoskeletal: Negative for back pain. Skin: Negative for rash. Neurological: Negative for headaches, weakness or numbness. 10 point ROS negative except as marked above and in HPI. Physical Exam - Vital signs Vitals: Temp 99.3 F 08/27/16 20:25 Interpretation: Normal Notes: PHYSICAL EXAMINATION: GENERAL: Well-appearing, well-nourished and in no acute distress. HEAD: Atraumatic, normocephalic. EYES: Pupils equal round and reactive to light, extraocular movements intact, sclera anicteric, conjunctiva are normal. ENT: nares patent, oropharynx clear without exudates. Moderately dry mucous membranes. NECK: Normal range of motion, supple without lymphadenopathy LUNGS: Breath sounds clear to auscultation bilaterally and equal. No wheezes rales or rhonchi. HEART: Regular rate and rhythm without murmurs ABDOMEN: Soft, well-healing surgical incisions. Mild tenderness on palpation of the suprapubic and left lower quadrant. No rebound or guarding. EXTREMITIES: Normal range of motion, no pitting or edema. No cyanosis. NEUROLOGICAL: No focal neurological deficits. Moves all extremities spontaneously and on command. PSYCH: Normal mood, normal affect. SKIN: Warm, Dry, normal turgor, no rashes or lesions noted. Course - Re-evaluation Re-evalutation: 08/27/16 21:02 Patient presents with findings concerning for a postoperative phlegmon versus abscess after partial colectomy in the setting of a perforated diverticulitis at the beginning of this month. She has had a fever at home and has a leukocytosis here on labs. CT confirms postoperative fluid collections. Patient was referred to emergency department by her surgeon and I discussed this case with the surgeon contract runner Dr. Hutton who will admit. She has been started on IV levofloxacin and metronidazole. IV fluids have been initiated. - Vital Signs Vital signs: Temp Pulse Resp BP Pulse Ox 99.0 F 27 H 112/55 L 98 08/28/16 00:00 08/28/16 02:01 08/28/16 02:01 08/28/16 02:01 - Laboratory Result Diagrams: 08/27/16 22:34 - Diagnostic Test Radiology reviewed: Reports reviewed Discharge - Discharge Clinical Impression: Intra-abdominal abscess Disposition: ADMITTED INPATIENT Admitting Provider: Surgicalist Duncan Hutton
[2016-08-27] MEDS ORDERED: POTASSI CL 20 MEQ/D5NS 1L 1,000 ML IV PRN (21:58)
[2016-08-27] MEDS ORDERED: HYDROMORPHONE HCL INJ/PF 2 MG/ML AMPULE IV PRN ×2 (22:04→22:05)
[2016-08-27] MEDS ORDERED: PIPERACILLIN/TAZOBACTAM 3.375 GM VIAL IV PRN (22:15)
[2016-08-27 22:43] LABS: HEMATOCRIT 30.1 % (36.0-47.0); HGB HCT DIFFERENCE -0.1; MEAN CORPUSCULAR HEMOGLOBIN 27.2 pg (27.0-33.4); MEAN CORPUSCULAR HGB CONC 33.1 g/dL (32.0-36.0); MEAN CORPUSCULAR VOLUME 82 fl (80-97); RED BLOOD COUNT 3.67 10^6/uL (3.72-5.28); RED CELL DISTRIBUTION WIDTH 14.5 % (11.5-14.0); WHITE BLOOD COUNT 11.9 10^3/uL (4.0-10.5)
--- NOTE | 2016-08-27 22:43 | HISTORY AND PHYSICAL E ---
History and Physical NAME: WESTON YUSUF : 1980 AGE: 35Y ADMITTED: 08/27/2016 ROOM: ED01 REASON FOR ADMISSION: Recent history of laparoscopic sigmoid colon resection now with postoperative intra-abdominal infection. HISTORY OF PRESENT ILLNESS: The patient is a 35-year-old female who about 3 weeks ago was admitted for sigmoid diverticulitis with contained localized perforation. She did not improve on IV antibiotics and, therefore, was taken to surgery approximately 2-1/2 weeks ago. She had underwent laparoscopic sigmoid colon resection which showed an intra-abdominal abscess and primary anastomosis. She was in the hospital for approximately 3 to 4 days and was discharged home on oral antibiotics and a J-P drain. She had followup in clinic to have the J-P drain removed. Now for the last 3 days, she has not been feeling well, having abdominal pain and nausea. She has had loose stools up to 10 a day since her surgery. She has had low-grade temperature but has not measured it. PAST SURGICAL HISTORY: 1. Myomectomy. 2. Laparoscopic sigmoid colon resection. MEDICAL PROBLEMS: None. MEDICATIONS: None. ALLERGIES TO MEDICATIONS: None. HABITS: The patient denies any smoking or alcohol use. SOCIAL HISTORY: The patient is . VITAL SIGNS: Temperature 99.3. Pulse is 79. Blood pressure 110/60. Respirations 16. REVIEW OF SYSTEMS: CONSTITUTIONAL: Not feeling well. GASTROINTESTINAL: Loose stools and abdominal pain. A 12-point review of systems was obtained with pertinent positives discussed and all others being negative. PHYSICAL EXAMINATION: GENERAL: The patient is lying in bed. She is cooperative and pleasant in minimal distress at the current time. HEENT: Eyes anicteric. NECK: No lymphadenopathy. HEART: Regular. LUNGS: Clear. BACK: Nontender. ABDOMEN: Tender in the left lower quadrant and suprapubic regions. Her incisions are healed without any evidence of acute infection. EXTREMITIES: No edema, cyanosis. NEUROLOGIC: The patient appears to be neurologically intact without any deficits. PSYCHIATRIC: The patient is coherent, cooperative, and appears to answer questions fully. LABORATORY DATA: White blood cell count is 13; hemoglobin of 12. CT scan of the abdomen and pelvis shows fluid collections in the left lower quadrant and pelvis that is drainable. There does not appear to be any air. There does not appear to be any leakage from the anastomosis at this time seen on the CT scan. ASSESSMENT: Fever, leukocytosis, and abdominal pain status post recent laparoscopic sigmoid colon resection. This most likely represents postoperative abscess formation. Recommend the patient be admitted to the hospital and started on IV antibiotics. PLAN: 1. Admit to the hospital. 2. Liquid diet. 3. Stool for C. difficile colitis in regard to her diarrhea. 4. Abdominal exams. 5. She will need a follow-up CT scan in the near future. DICTATING PHYSICIAN: JUDD CHENG M.D. [id number] PHY#: [id number] ID: [id number] JOB#: [id number] ACCT: [id number] cc:Jorge SHEPPARD MD
[2016-08-27] MEDS ORDERED: FAMOTIDINE 20 MG TABLET PO ONE (23:00)
[2016-08-28] MEDS: PIPERACILLIN SODIUM/TAZOBACTAM 3.375 GM in NORMAL SALINE 100 ML IV SCH ×2 (00:03→08:31)
[2016-08-28] MEDS ORDERED: PIPERACILLIN/TAZOBACTAM 3.375 GM VIAL IV ONE (05:41)
[2016-08-28 06:57] LABS: ABSOLUTE BASOPHILS # (AUTO) 0.1 10^3/uL (0.0-0.2); ABSOLUTE EOSINOPHILS # (AUTO) 0.1 10^3/uL (0.0-0.6); ABSOLUTE LYMPHOCYTES (AUTO) 1.8 10^3/uL (0.5-4.7); ABSOLUTE MONOCYTES (AUTO) 0.9 10^3/uL (0.1-1.4); BASOPHILS % (AUTO) 0.6 % (0-2); EOSINOPHILS % (AUTO) 0.4 % (0-6); HEMATOCRIT 32.4 % (36.0-47.0); HEMOGLOBIN 10.8 g/dL (12.0-15.5); LYMPHOCYTES % (AUTO) 14.9 % (13-45); MEAN CORPUSCULAR HEMOGLOBIN 27.1 pg (27.0-33.4); MEAN CORPUSCULAR HGB CONC 33.3 g/dL (32.0-36.0); MEAN CORPUSCULAR VOLUME 81 fl (80-97); MONOCYTES % (AUTO) 7.7 % (3-13); RED BLOOD COUNT 3.98 10^6/uL (3.72-5.28); RED CELL DISTRIBUTION WIDTH 14.6 % (11.5-14.0); SEGMENTED NEUTROPHILS % (AUTO) 76.4 % (42-78); WHITE BLOOD COUNT 11.8 10^3/uL (4.0-10.5)
[2016-08-28] MEDS ORDERED: ENOXAPARIN SODIUM INJ 40 MG/0.4 ML DISP.SYRIN SUBCUT SCH (08:00)
[2016-08-28 08:09] LABS: ANION GAP 12 (5-19); BLOOD UREA NITROGEN 5 mg/dL (7-20); CARBON DIOXIDE 24 mmol/L (22-30); CHLORIDE 103 mmol/L (98-107); CREATININE RESULT 0.54 mg/dL (0.52-1.25); GLUCOSE 98 mg/dL (75-110); POTASSIUM 3.7 mmol/L (3.6-5.0); SODIUM 138.8 mmol/L (137-145)
[2016-08-28] MEDS: FAMOTIDINE 20 MG TABLET PO SCH ×2 (09:00→22:36)
[2016-08-28] MEDS: LACTOBACILLUS ACIDOPHILUS 250 MG TAB PO SCH ×2 (09:00→17:08)
[2016-08-28] MEDS: METRONIDAZOLE 500 MG TABLET PO SCH ×2 (12:04→17:08)
--- NOTE | 2016-08-28 12:43 | PROGRESS NOTE E ---
Progress Note NAME: WESTON YUSUF : 1980 AGE: 35Y DATE: 08/28/2016 ROOM: 210 SUBJECTIVE: The patient is status post laparoscopic sigmoid colon resection with primary anastomosis approximately 2-1/2 weeks ago for a perforated diverticulitis. She presents with a 3-day history of not feeling well. She has had diarrhea since the surgery. The patient is having less abdominal pain with no complaints of nausea or vomiting. OBJECTIVE: VITAL SIGNS: The patient currently is afebrile. Her temperature is 98.8, pulse 97, blood pressure 114/61. ABDOMEN: The patient's abdomen is soft, tender in the left lower quadrant and lower abdominal area but improved from yesterday. No peritoneal signs. DIAGNOSTIC DATA: Stool is positive for C. difficile. White blood cell count is 11.8. ASSESSMENT AND PLAN: 1. ABDOMINAL PAIN WITH CT SCAN SHOWING PROBABLE INTRA-ABDOMINAL ABSCESS. She is status post laparoscopic sigmoid colon resection, drainage of abdominal abscess and primary colorectal anastomosis. She is feeling better overnight on IV antibiotics; however, white blood cell count is still slightly elevated at 11.8. I would recommend continued IV antibiotics at the current time. In discussion with Radiology, they feel the intra-abdominal abscess may be amenable to percutaneous drainage. She will plan on having the procedure done in the a.m. 2. DIARRHEA SECONDARY TO CLOSTRIDIUM DIFFICILE. Oral Flagyl has been started. DICTATING PHYSICIAN: JUDD CHENG M.D. [id number] PHY#: [id number] ID: [id number] JOB#: [id number] ACCT: [id number] cc: >
[2016-08-28] MEDS: ACETAMINOPHEN 325 MG TABLET PO PRN (20:51)
[2016-08-28] MEDS: POTASSI CL 20 MEQ/D5NS 1L 1,000 ML IV PRN (22:36)
[2016-08-29] MEDS: METRONIDAZOLE 500 MG TABLET PO SCH ×4 (05:20→17:27)
[2016-08-29 06:54] LABS: ABSOLUTE EOSINOPHILS # (AUTO) 0.1 10^3/uL (0.0-0.6); ABSOLUTE LYMPHOCYTES (AUTO) 1.5 10^3/uL (0.5-4.7); ABSOLUTE MONOCYTES (AUTO) 0.8 10^3/uL (0.1-1.4); ABSOLUTE NEUT (AUTO) 7.5 10^3/uL (1.7-8.2); BASOPHILS % (AUTO) 0.4 % (0-2); EOSINOPHILS % (AUTO) 0.8 % (0-6); HEMATOCRIT 32.8 % (36.0-47.0); HGB HCT DIFFERENCE 0.2; LYMPHOCYTES % (AUTO) 15.6 % (13-45); MEAN CORPUSCULAR HEMOGLOBIN 27.2 pg (27.0-33.4); MEAN CORPUSCULAR HGB CONC 33.5 g/dL (32.0-36.0); MEAN CORPUSCULAR VOLUME 81 fl (80-97); MONOCYTES % (AUTO) 7.6 % (3-13); RED BLOOD COUNT 4.03 10^6/uL (3.72-5.28); RED CELL DISTRIBUTION WIDTH 14.5 % (11.5-14.0); SEGMENTED NEUTROPHILS % (AUTO) 75.6 % (42-78); WHITE BLOOD COUNT 9.9 10^3/uL (4.0-10.5)
[2016-08-29 07:52] LABS: PROTHROMBIN TIME 15.3 SEC (11.4-15.4)
[2016-08-29 07:53] LABS: PARTIAL THROMBOPLASTIN TIME 31.2 SEC (23.5-35.8)
--- NOTE | 2016-08-29 08:17 | PDOC PROGRESS REPORT ---
Subjective Progress Note for:: 08/29/16 Subjective:: Feels okay some left lower quadrant abdominal discomfort. Physical Exam Vital Signs: Temp Pulse Resp BP Pulse Ox 98.6 F 92 22 H 102/48 L 100 08/29/16 04:00 08/29/16 04:00 08/29/16 04:00 08/29/16 04:00 08/29/16 04:00 Intake & Output 08/28/16 08/29/16 08/30/16 06:59 06:59 06:59 Intake Total 30 240 Output Total 75 1000 Balance -45 -760 Weight 63.5 kg 63.4 kg General appearance: PRESENT: no acute distress, cooperative Respiratory exam: PRESENT: clear to auscultation lizzie Cardiovascular exam: PRESENT: RRR GI/Abdominal exam: PRESENT: other - Soft, nondistended, focal tenderness in the left lower quadrant without peritoneal signs. Extremities exam: PRESENT: other - No swelling and no tenderness Results Laboratory Results: 08/29/16 06:16 08/28/16 06:11 08/29/16 06:16 WBC 9.9 RBC 4.03 Hgb 11.0 L Hct 32.8 L MCV 81 MCH 27.2 MCHC 33.5 RDW 14.5 H Plt Count 414 Seg Neutrophils % 75.6 Lymphocytes % 15.6 Monocytes % 7.6 Eosinophils % 0.8 Basophils % 0.4 Absolute Neutrophils 7.5 Absolute Lymphocytes 1.5 Absolute Monocytes 0.8 Absolute Eosinophils 0.1 Absolute Basophils 0.0 Assessment & Plan - Diagnosis (1) Intra-abdominal abscess Is this a current diagnosis for this admission?: YesPlan: Abscess status post low anterior resection for diverticulitis. Pending CT- guided drainage.
[2016-08-29] MEDS ORDERED: FENTANYL CITRATE INJ/PF 100 MCG/2 ML AMPUL ONE (08:20)
[2016-08-29] MEDS ORDERED: MIDAZOLAM 2 MG/2 ML INJ ONE (08:20)
[2016-08-29] MEDS: LACTOBACILLUS ACIDOPHILUS 250 MG TAB PO SCH ×2 (10:17→17:27)
[2016-08-29] MEDS: FAMOTIDINE 20 MG TABLET PO SCH ×2 (10:17→21:28)
[2016-08-29] MEDS: ONDANSETRON HCL INJ/PF 4 MG/2 ML SDV IV PRN (10:23)
[2016-08-29] MEDS: POTASSI CL 20 MEQ/D5NS 1L 1,000 ML IV PRN (14:52)
[2016-08-29] MEDS: ACETAMINOPHEN 325 MG TABLET PO PRN (18:03)
[2016-08-30] MEDS: METRONIDAZOLE 500 MG TABLET PO SCH ×5 (02:17→23:52)
[2016-08-30 07:09] LABS: ABSOLUTE EOSINOPHILS # (AUTO) 0.1 10^3/uL (0.0-0.6); ABSOLUTE LYMPHOCYTES (AUTO) 1.8 10^3/uL (0.5-4.7); ABSOLUTE MONOCYTES (AUTO) 0.8 10^3/uL (0.1-1.4); ABSOLUTE NEUT (AUTO) 8.3 10^3/uL (1.7-8.2); BASOPHILS % (AUTO) 0.4 % (0-2); EOSINOPHILS % (AUTO) 0.5 % (0-6); HEMATOCRIT 32.6 % (36.0-47.0); HGB HCT DIFFERENCE 0.4; LYMPHOCYTES % (AUTO) 16.2 % (13-45); MEAN CORPUSCULAR HEMOGLOBIN 27.2 pg (27.0-33.4); MEAN CORPUSCULAR HGB CONC 33.6 g/dL (32.0-36.0); MEAN CORPUSCULAR VOLUME 81 fl (80-97); MONOCYTES % (AUTO) 7.5 % (3-13); RED BLOOD COUNT 4.02 10^6/uL (3.72-5.28); RED CELL DISTRIBUTION WIDTH 14.5 % (11.5-14.0); SEGMENTED NEUTROPHILS % (AUTO) 75.4 % (42-78)
[2016-08-30 07:40] LABS: ANION GAP 11 (5-19); BLOOD UREA NITROGEN 5 mg/dL (7-20); CALCIUM 8.8 mg/dL (8.4-10.2); CARBON DIOXIDE 25 mmol/L (22-30); CHLORIDE 101 mmol/L (98-107); CREATININE RESULT 0.51 mg/dL (0.52-1.25); GLUCOSE 135 mg/dL (75-110); SODIUM 136.9 mmol/L (137-145)
[2016-08-30] MEDS: LACTOBACILLUS ACIDOPHILUS 250 MG TAB PO SCH ×2 (09:54→18:14)
[2016-08-30] MEDS: FAMOTIDINE 20 MG TABLET PO SCH ×2 (09:54→22:12)
[2016-08-30] MEDS ORDERED: CIPROFLOXACIN 200 MG/D5W RTU 100 ML IV ONE (15:11)
[2016-08-30] MEDS ORDERED: CIPROFLOXACIN 400 MG/D5W RTU 400 MG/200 ML RTUPB IV SCH (18:00)
--- NOTE | 2016-08-30 18:18 | PROGRESS NOTE E ---
Progress Note NAME: WESTON YUSUF : 1980 AGE: 35Y DATE: 08/30/2016 ROOM: 210 Doing quite well. The needle aspiration was positive for gram-negative rods. She did have a fever of 100. Her physical exam showed just minimal tenderness in the left lower quadrant where the aspiration was done. She is tolerating her diet well and moving her bowels. Her white count was 11,000. She does have superficial phlebitis from IV on the right forearm. This is quite warm and swollen and tender. Her fever may be coming from this rather than from the hematoma or is positive for gram-negative rods. We will repeat her white count in the morning and hopefully we will get a final report on her aspiration culture. We will re-evaluate her with Dr. Joaquin who originally admitted her. DICTATING PHYSICIAN: BLAKE VILLALBA M.D. [id number] PHY#: [id number] ID: [id number] JOB#: [id number] ACCT: [id number] cc: >
[2016-08-30] MEDS: ONDANSETRON HCL INJ/PF 4 MG/2 ML SDV IV PRN (22:11)
[2016-08-30] MEDS: CEFAZOLIN 1 GM/D5W RTU 1 GM/50 ML RTUPB IV SCH (22:11)
[2016-08-31] MEDS: CEFAZOLIN 1 GM/D5W RTU 1 GM/50 ML RTUPB IV SCH (05:10)
[2016-08-31] MEDS: METRONIDAZOLE 500 MG TABLET PO SCH (05:10)
[2016-08-31 06:25] LABS: ABSOLUTE BASOPHILS # (AUTO) 0.1 10^3/uL (0.0-0.2); ABSOLUTE EOSINOPHILS # (AUTO) 0.1 10^3/uL (0.0-0.6); ABSOLUTE LYMPHOCYTES (AUTO) 1.5 10^3/uL (0.5-4.7); ABSOLUTE MONOCYTES (AUTO) 0.7 10^3/uL (0.1-1.4); ABSOLUTE NEUT (AUTO) 9.7 10^3/uL (1.7-8.2); BASOPHILS % (AUTO) 0.8 % (0-2); EOSINOPHILS % (AUTO) 0.5 % (0-6); HEMATOCRIT 33.9 % (36.0-47.0); HEMOGLOBIN 11.5 g/dL (12.0-15.5); HGB HCT DIFFERENCE 0.6; LYMPHOCYTES % (AUTO) 12.4 % (13-45); MEAN CORPUSCULAR HEMOGLOBIN 27.2 pg (27.0-33.4); MEAN CORPUSCULAR HGB CONC 33.8 g/dL (32.0-36.0); MEAN CORPUSCULAR VOLUME 80 fl (80-97); MONOCYTES % (AUTO) 5.9 % (3-13); RED BLOOD COUNT 4.22 10^6/uL (3.72-5.28); RED CELL DISTRIBUTION WIDTH 14.4 % (11.5-14.0); SEGMENTED NEUTROPHILS % (AUTO) 80.4 % (42-78); WHITE BLOOD COUNT 12.1 10^3/uL (4.0-10.5)
[2016-08-31 08:06] VITALS: BP 106/55
[2016-08-31] MEDS: FAMOTIDINE 20 MG TABLET PO SCH (09:54)
[2016-08-31] MEDS: LACTOBACILLUS ACIDOPHILUS 250 MG TAB PO SCH (09:54)
--- NOTE | 2016-08-31 11:33 | PDOC PROGRESS REPORT ---
Subjective Progress Note for:: 08/31/16 Subjective:: Patient feels better; right arm less sore; tolerating a diet. Physical Exam Vital Signs: Temp Pulse Resp BP Pulse Ox 98.2 F 88 16 106/55 L 99 08/31/16 07:46 08/31/16 07:46 08/31/16 07:46 08/31/16 07:46 08/31/16 07:46 Intake & Output 08/30/16 08/31/16 09/01/16 06:59 06:59 06:59 Intake Total 240 Balance 240 General appearance: PRESENT: no acute distress GI/Abdominal exam: PRESENT: other - Soft, nontender, operative incisions have healed satisfactorily Musculoskeletal exam: PRESENT: other - Right arm minimally tender below the elbow, no streaking or cellulitis Results Laboratory Results: 08/31/16 05:45 08/30/16 06:14 08/31/16 05:45 WBC 12.1 H RBC 4.22 Hgb 11.5 L Hct 33.9 L MCV 80 MCH 27.2 MCHC 33.8 RDW 14.4 H Plt Count 438 Seg Neutrophils % 80.4 H Lymphocytes % 12.4 L Monocytes % 5.9 Eosinophils % 0.5 Basophils % 0.8 Absolute Neutrophils 9.7 H Absolute Lymphocytes 1.5 Absolute Monocytes 0.7 Absolute Eosinophils 0.1 Absolute Basophils 0.1 Impressions: Needle Aspiration CT 08/29/16 00:00 IMPRESSION: CT-GUIDED ASPIRATION OF THE LEFT INTRAPERITONEAL FLUID COLLECTION AT THE LEVEL OF THE UMBILICUS, PERFORMED WITHOUT IMMEDIATE COMPLICATION. CULTURES ARE PENDING. Assessment & Plan - Diagnosis (1) Intra-abdominal abscess Is this a current diagnosis for this admission?: YesPlan: 1. Abdominal wall infection appears clinically improved. Hematoma grew 4+ gram negative rods. The patient is tolerating a diet and has been on ciprofloxacin Ancef and Flagyl. Patient's white blood cell count is down to 12, 000 2. Patient is C. difficile positive, being treated with Flagyl for this. She is asymptomatic currently and having semi-formed stools. 3. Cellulitis right upper extremity with superficial thrombophlebitis resolving with conservative measures 4. Recommendation: I believe patient can be safely managed on an outpatient basis with by mouth Flagyl for C. difficile, and a few days of ciprofloxacin to cover the Escherichia coli growing from the abdominal wall hematoma. The patient up for follow-up with Dr. fernando or BERENICE Cisneros and also surgical clinic
--- NOTE | 2016-11-01 19:37 | DISCHARGE SUMMARY E ---
Discharge Summary NAME: WESTON YUSUF : 1980 AGE: 35Y ADMITTED: 08/27/2016 DISCHARGED: 08/31/2016 FINAL DIAGNOSES: 1. Post laparoscopic sigmoid colon resection with postoperative intraperitoneal fluid collection. 2. C. diff infection. 3. Cellulitis of right upper extremity. SUMMARY: This is a 35-year-old female who underwent laparoscopic sigmoid resection about 2-1/2 weeks prior to this admission. She did complain of abdominal pains with nausea. Her white count was elevated when admitted and CAT scan revealed a collection at the area of the left side at the umbilical level. She then underwent CT-guided aspiration of intraperitoneal fluid collection at the level of the umbilicus in the x-ray department on 08/29/2016. She also had a history of diarrhea and stool was positive for C. diff. She was started on IV Flagyl and Cipro. She will continue on p.o. Cipro for the next few days and Flagyl for at least 14-day course for the C. diff. The patient is to be followed up in the surgical clinic in about a week. She should avoid heavy lifting more than 20 pounds for the next 2 weeks. She should be able to tolerate a regular diet. She will be followed up in the surgical clinic in about 1-2 weeks. DICTATING PHYSICIAN: BLAKE VILLALBA M.D. [id number] PHY#: [id number] ID: [id number] JOB#: [id number] ACCT: [id number] cc:BLAKE VILLALBA M.D., STEPHEN M.D. >
== END 2016-08-31 12:56 | disposition home or self-care (01) | DRG 862 ==
LOC: ER 20:19 → EH 21:23 → UNDOADMIN 21:23 → EH 21:58 → 2N 08-28 04:55
PROVIDERS: ADMIT Surgery; ATTEND Surgery
PROC: 0W9G3ZZ Drainage of Peritoneal Cavity, Percutaneous Approach (ICD-10-PCS; principal; 2016-08-29)
DX: T81.4XXA Infection following a procedure, initial encounter (principal); K65.1 Peritoneal abscess; A04.7 Enterocolitis due to Clostridium difficile; L03.113 Cellulitis of right upper limb; Y83.6 Removal of other organ (partial) (total) as the cause of abnormal reaction of the patient, or of later complication, without mention of misadventure at the time of the procedure; I80.8 Phlebitis and thrombophlebitis of other sites; Z90.49 Acquired absence of other specified parts of digestive tract; Z86.010 Personal history of colon polyps
CPT/HCPCS: 10022; 36415; 80048; 85025; 85027; 85610; 85730; 87040; 87070; 87075; 87077; 87186; 87205; 87493; 99284; J0690; J1650; J1956; J2250; J2405; J2543; J3010; J3480; J7030

== ENCOUNTER → 2016-08-27 | Outpatient (CLI) | payer BC ==
[2016-08-27 16:06] LABS: ABSOLUTE BASOPHILS # (AUTO) 0.1 10^3/uL (0.0-0.2); ABSOLUTE EOSINOPHILS # (AUTO) 0.1 10^3/uL (0.0-0.6); ABSOLUTE LYMPHOCYTES (AUTO) 2.3 10^3/uL (0.5-4.7); ABSOLUTE NEUT (AUTO) 9.8 10^3/uL (1.7-8.2); BASOPHILS % (AUTO) 0.6 % (0-2); EOSINOPHILS % (AUTO) 0.5 % (0-6); HEMATOCRIT 36.5 % (36.0-47.0); HEMOGLOBIN 12.3 g/dL (12.0-15.5); HGB HCT DIFFERENCE 0.4; LYMPHOCYTES % (AUTO) 17.2 % (13-45); MEAN CORPUSCULAR HEMOGLOBIN 27.3 pg (27.0-33.4); MEAN CORPUSCULAR HGB CONC 33.6 g/dL (32.0-36.0); MEAN CORPUSCULAR VOLUME 81 fl (80-97); MONOCYTES % (AUTO) 7.6 % (3-13); RED BLOOD COUNT 4.49 10^6/uL (3.72-5.28); RED CELL DISTRIBUTION WIDTH 14.5 % (11.5-14.0); SEGMENTED NEUTROPHILS % (AUTO) 74.1 % (42-78); WHITE BLOOD COUNT 13.2 10^3/uL (4.0-10.5)
[2016-08-27 16:14] LABS: APPEARANCE,URINE SLIGHTLY-CLOUDY; BILIRUBIN,URINE NEGATIVE (NEGATIVE); GLUCOSE, URINE NEGATIVE (NEGATIVE); KETONES,URINE NEGATIVE (NEGATIVE); LEUKOCYTE ESTERASE,URINE SMALL (NEGATIVE); NITRITE,URINE NEGATIVE (NEGATIVE); PROTEIN,URINE NEGATIVE (NEGATIVE); URINE SPECIFIC GRAVITY 1.019; UROBILINOGEN,URINE NEGATIVE mg/dL (<2.0)
[2016-08-27 16:21] LABS: ANION GAP 14 (5-19); BLOOD UREA NITROGEN 7 mg/dL (7-20); CALCIUM 9.5 mg/dL (8.4-10.2); CARBON DIOXIDE 28 mmol/L (22-30); CHLORIDE 99 mmol/L (98-107); CREATININE RESULT 0.56 mg/dL (0.52-1.25); GLUCOSE 97 mg/dL (75-110); POTASSIUM 3.9 mmol/L (3.6-5.0)
== END ==
LOC: RAD 15:33
PROVIDERS: ATTEND Surgery
DX: R10.9 Unspecified abdominal pain (principal); R50.9 Fever, unspecified; Z90.49 Acquired absence of other specified parts of digestive tract; K57.92 Diverticulitis of intestine, part unspecified, without perforation or abscess without bleeding
CPT/HCPCS: 36415; 74177; 80048; 81001; 85025

== ENCOUNTER → 2016-10-21 | Outpatient (CLI) | payer BC | LOC: RAD 15:02 | PROVIDERS: ATTEND Physician Assistant Surgical | DX: R10.814 Left lower quadrant abdominal tenderness (principal); R50.9 Fever, unspecified; R10.32 Left lower quadrant pain | CPT/HCPCS: 74177 ==

== ENCOUNTER 2017-12-05 18:39 | Emergency (ER) | payer BC ==
[2017-12-05] MEDS ORDERED: FENTANYL CITRATE INJ/PF 100 MCG/2 ML AMPUL IV ONE (19:20)
[2017-12-05] MEDS ORDERED: METOCLOPRAMIDE HCL INJ/PF 10 MG/2 ML SDV IV ONE (19:20)
[2017-12-05] MEDS ORDERED: NORMAL SALINE 1000 ML 1,000 ML IV ONE (19:20)
--- NOTE | 2017-12-05 19:23 | ER Document Report ---
ED Medical Screen (RME) - General Chief Complaint: Abdominal Pain Stated Complaint: LEFT SIDE PAIN Time Seen by Provider: 12/05/17 19:16 Mode of Arrival: Ambulatory Information source: Patient Notes: 36-year-old female presents with complaints of left lower quadrant abdominal pain. Patient notes history of diverticulitis states this feels similar to when it needed surgery I have greeted and performed a rapid initial assessment of this patient. A comprehensive ED assessment and evaluation of the patient, analysis of test results and completion of the medical decision making process will be conducted by additional ED providers. PHYSICAL EXAMINATION: GENERAL: Well-appearing, well-nourished and in no acute distress. HEAD: Atraumatic, normocephalic. EYES: Pupils equal round extraocular movements intact, conjunctiva are normal. ENT: Nares patent NECK: Normal range of motion LUNGS: No respiratory distress Musculoskeletal: Normal range of motion NEUROLOGICAL: Normal speech, normal gait. PSYCH: Normal mood, normal affect. SKIN: Warm, Dry, normal turgor, no rashes or lesions noted. TRAVEL OUTSIDE OF THE [place] IN LAST 30 DAYS: No - Related Data Allergies/Adverse Reactions: No Known Allergies Allergy (Verified 08/08/16 15:48) Past Medical History - Social History Chew tobacco use (# tins/day): No Frequency of alcohol use: None Drug Abuse: None - Past Medical History Cardiac Medical History: Denies: Hx Atrial Fibrillation, Hx Congestive Heart Failure, Hx Coronary Artery Disease, Hx Heart Attack, Hx Hypercholesterolemia, Hx Hypertension, Hx Peripheral Vascular Disease, Hx Heart Murmur Renal/ Medical History: Denies: Hx Ovarian Cysts, Hx Peritoneal Dialysis, Hx Pelvic Inflammatory Disease Malignancy Medical History: Denies: Hx Breast Cancer, Hx Cervical Cancer, Hx Ovarian Cancer GI Medical History: Reports: Hx Colonoscopy - Found polyps in 2006. Denies: Hx Ulcerative Colitis Psychiatric Medical History: Denies: Hx Depression Past Surgical History: Reports: Hx Gynecologic Surgery - Removal of fibroid 2015, Hx Tonsillectomy. Denies: Hx Appendectomy, Hx Bowel Surgery, Hx Section, Hx Cholecystectomy, Hx Coronary Artery Bypass Graft, Hx Gastric Bypass Surgery, Hx Herniorrhaphy, Hx Hysterectomy, Hx Mastectomy, Hx Pacemaker, Hx Tubal Ligation - Immunizations Hx Diphtheria, Pertussis, Tetanus Vaccination: Yes Physical Exam - Vital signs Vitals: Temp Pulse Resp BP Pulse Ox 98.6 F 86 16 117/62 96 12/05/17 18:47 12/05/17 18:47 12/05/17 18:47 12/05/17 18:47 12/05/17 18:47 Course - Vital Signs Vital signs: Temp Pulse Resp BP Pulse Ox 98.6 F 86 16 117/62 96 12/05/17 18:47 12/05/17 18:47 12/05/17 18:47 12/05/17 18:47 12/05/17 18:47 Doctor's Discharge - Discharge Referrals: MATTEO DONAHUE, EVELYNC [Primary Care Provider] - Follow up as needed
[2017-12-05 19:53] LABS: ABSOLUTE EOSINOPHILS # (AUTO) 0.1 10^3/uL (0.0-0.6); ABSOLUTE LYMPHOCYTES (AUTO) 2.6 10^3/uL (0.5-4.7); ABSOLUTE MONOCYTES (AUTO) 0.5 10^3/uL (0.1-1.4); ABSOLUTE NEUT (AUTO) 6.7 10^3/uL (1.7-8.2); BASOPHILS % (AUTO) 0.3 % (0-2); EOSINOPHILS % (AUTO) 0.5 % (0-6); HEMATOCRIT 40.8 % (36.0-47.0); HEMOGLOBIN 13.6 g/dL (12.0-15.5); LYMPHOCYTES % (AUTO) 25.9 % (13-45); MEAN CORPUSCULAR HEMOGLOBIN 27.5 pg (27.0-33.4); MEAN CORPUSCULAR HGB CONC 33.5 g/dL (32.0-36.0); MEAN CORPUSCULAR VOLUME 82 fl (80-97); MONOCYTES % (AUTO) 5.4 % (3-13); PLATELET COUNT 341 10^3/uL (150-450); RED BLOOD COUNT 4.97 10^6/uL (3.72-5.28); RED CELL DISTRIBUTION WIDTH 14.5 % (11.5-14.0); SEGMENTED NEUTROPHILS % (AUTO) 67.9 % (42-78); TOTAL CELLS COUNTED % (AUTO) 100 %; WHITE BLOOD COUNT 9.9 10^3/uL (4.0-10.5)
[2017-12-05 20:04] LABS: APPEARANCE,URINE CLOUDY; BILIRUBIN,URINE NEGATIVE (NEGATIVE); COLOR,URINE YELLOW; GLUCOSE, URINE NEGATIVE (NEGATIVE); KETONES,URINE NEGATIVE (NEGATIVE); LEUKOCYTE ESTERASE,URINE TRACE (NEGATIVE); NITRITE,URINE NEGATIVE (NEGATIVE); PROTEIN,URINE NEGATIVE (NEGATIVE); URINE SPECIFIC GRAVITY 1.024; UROBILINOGEN,URINE NEGATIVE mg/dL (<2.0)
[2017-12-05 20:28] LABS: ALANINE AMINOTRANSFERASE 30 U/L (9-52); ALBUMIN 4.3 g/dL (3.5-5.0); ALKALINE PHOSPHATASE 64 U/L (38-126); ANION GAP 12 (5-19); ASPARTATE AMINO TRANSFERASE 18 U/L (14-36); BILIRUBIN,DIRECT 0.3 mg/dL (0.0-0.4); BILIRUBIN,TOTAL 0.4 mg/dL (0.2-1.3); BLOOD UREA NITROGEN 15 mg/dL (7-20); CALCIUM 9.4 mg/dL (8.4-10.2); CARBON DIOXIDE 28 mmol/L (22-30); CHLORIDE 105 mmol/L (98-107); GLUCOSE 97 mg/dL (75-110); LIPASE 71.6 U/L (23-300); POTASSIUM 4.2 mmol/L (3.6-5.0); SODIUM 144.6 mmol/L (137-145); TOTAL PROTEIN 7.4 g/dL (6.3-8.2)
--- NOTE | 2017-12-05 21:36 | RADIOLOGY REPORT (SQ) ---
EXAM DESCRIPTION: CT ABD/PELVIS WITH IV ONLY COMPLETED DATE/TIME: 12/05/2017 9:19 pm REASON FOR STUDY: LLQ pain , hx diverticulitis COMPARISON: 10/21/2016. TECHNIQUE: CT scan of the abdomen and pelvis performed using helical scanning technique with dynamic intravenous contrast injection. No oral contrast. Images reviewed with lung, soft tissue, and bone windows. Reconstructed coronal and sagittal MPR images reviewed. Delayed images for evaluation of the urinary system also acquired. All images stored on PACS. All CT scanners at this facility use dose modulation, iterative reconstruction, and/or weight based d osing when appropriate to reduce radiation dose to as low as reasonably achievable (ALARA). [facility]: Dose Right [facility]: CareDose [facility]: Dose Right [facility]: Teradose 4D [facility]: DDVTECH CONTRAST TYPE AND DOSE: contrast/concentration: Isovue 370.00 mg/ml; Total Contrast Delivered: 74.0 ml; Total Saline Delivered: 66.0 ml RENAL FUNCTION: None required. The patient is less than 50 years old. RADIATION DOSE: CT Rad equipment meets quality standard of care and radiation dose reduction techniq ues were employed. CTDIvol: 10.0 - 13.8 mGy. DLP: 1230 mGy-cm.. LIMITATIONS: None. FINDINGS: LOWER CHEST: No significant findings. No nodules or infiltrates. LIVER: Normal size. No masses. No dilated ducts. SPLEEN: Normal size. No focal lesions. PANCREAS: No masses. No significant calcifications. No adjacent inflammation or peripancreatic fluid collections. Pancreatic duct not dilated. GALLBLADDER: No identified stones by CT criteria. No inflammatory changes to suggest cholecystitis. ADRENAL GLANDS: No significant masses or asymmetry. RIGHT KIDNEY AND URETER: No solid masses. No significant calcifications. No hydronephrosis or hyd roureter. LEFT KIDNEY AND URETER: No solid masses. No significant calcifications. No hydronephrosis or hydr oureter. AORTA AND VESSELS: No aneurysm. No dissection. Renal arteries, SMA, celiac without stenosis. RETROPERITONEUM: No retroperitoneal adenopathy, hemorrhage or masses. BOWEL AND PERITONEAL CAVITY: No masses or inflammatory changes. No free fluid or peritoneal masses. APPENDIX: Normal. PELVIS: 1.5 cm left ovarian cyst. No free fluid. Normal bladder. ABDOMINAL WALL: No masses. No hernias. BONES: No significant or acute findings. OTHER: No other significant finding. IMPRESSION: NO SIGNIFICANT OR ACUTE FINDING IN THE ABDOMEN OR PELVIS ON CT SCAN WITH IV CONTRAST. TECHNICAL DOCUMENTATION: JOB ID: [id number] Quality ID # [id number]: Final reports with documentation of one or more dose reduction techniques (e.g., Au tomated exposure control, adjustment of the mA and/or kV according to patient size, use of iterative reconstruction technique) 2010 [employer]- All Rights Reserved Reading location - IP/workstation name: [email or web address]
[2017-12-05] MEDS ORDERED: HYDROCODONE/ACETAMINOPHEN 5-325 MG (6 TAB/ER DISP) PO PRN (23:08)
--- NOTE | 2017-12-05 23:09 | ER Document Report ---
ED General - General Chief Complaint: Abdominal Pain Stated Complaint: LEFT SIDE PAIN Time Seen by Provider: 12/05/17 19:16 Mode of Arrival: Ambulatory Notes: 36-year-old female patient to the emergency department with chief complaint of abdominal pain. Patient states that she has had diverticulitis in the past. She feels like she has diverticulitis again. No fever, chills, sweats. No vomiting or diarrhea. No other complaints. No vaginal complaints. TRAVEL OUTSIDE OF THE [place] IN LAST 30 DAYS: No - HPI Onset/Duration: Gradual - Related Data Allergies/Adverse Reactions: No Known Allergies Allergy (Verified 08/08/16 15:48) Past Medical History - General Information source: Patient - Social History Smoking Status: Never Smoker Chew tobacco use (# tins/day): No Frequency of alcohol use: None Drug Abuse: None Lives with: Spouse/Significant other Family History: Reviewed & Not Pertinent Patient has suicidal ideation: No Patient has homicidal ideation: No - Past Medical History Cardiac Medical History: Denies: Hx Atrial Fibrillation, Hx Congestive Heart Failure, Hx Coronary Artery Disease, Hx Heart Attack, Hx Hypercholesterolemia, Hx Hypertension, Hx Peripheral Vascular Disease, Hx Heart Murmur Renal/ Medical History: Denies: Hx Ovarian Cysts, Hx Peritoneal Dialysis, Hx Pelvic Inflammatory Disease Malignancy Medical History: Denies: Hx Breast Cancer, Hx Cervical Cancer, Hx Ovarian Cancer GI Medical History: Reports: Hx Colonoscopy - Found polyps in 2006. Denies: Hx Ulcerative Colitis Psychiatric Medical History: Denies: Hx Depression Past Surgical History: Reports: Hx Bowel Surgery - bowel resection, Hx Gynecologic Surgery - Removal of fibroid 12/2015, Hx Tonsillectomy. Denies: Hx Appendectomy, Hx Section, Hx Cholecystectomy, Hx Coronary Artery Bypass Graft, Hx Gastric Bypass Surgery, Hx Herniorrhaphy, Hx Hysterectomy, Hx Mastectomy, Hx Pacemaker, Hx Tubal Ligation - Immunizations Hx Diphtheria, Pertussis, Tetanus Vaccination: Yes Review of Systems - Review of Systems Constitutional: No symptoms reported EENT: No symptoms reported Cardiovascular: No symptoms reported Respiratory: No symptoms reported Gastrointestinal: Abdominal pain, Nausea. denies: Diarrhea, Vomiting Genitourinary: No symptoms reported Female Genitourinary: No symptoms reported Musculoskeletal: No symptoms reported Skin: No symptoms reported Hematologic/Lymphatic: No symptoms reported Neurological/Psychological: No symptoms reported Physical Exam - Vital signs Vitals: Temp Pulse Resp BP Pulse Ox 98.6 F 86 16 117/62 96 12/05/17 18:47 12/05/17 18:47 12/05/17 18:47 12/05/17 18:47 12/05/17 18:47 Interpretation: Normal - General General appearance: Appears well, Alert - HEENT Head: Normocephalic, Atraumatic Eyes: Normal Pupils: PERRL - Respiratory Respiratory status: No respiratory distress Chest status: Nontender Breath sounds: Normal Chest palpation: Normal - Cardiovascular Rhythm: Regular Heart sounds: Normal auscultation Murmur: No - Abdominal Inspection: Normal Distension: No distension Bowel sounds: Normal Tenderness: Tender, Other - And left lower quadrant tenderness. No guarding or rebound. Organomegaly: No organomegaly - Back Back: Normal, Nontender - Extremities General upper extremity: Normal inspection, Nontender, Normal color, Normal ROM , Normal temperature General lower extremity: Normal inspection, Nontender, Normal color, Normal ROM , Normal temperature, Normal weight bearing. No: Bogdan's sign - Neurological Neuro grossly intact: Yes Cognition: Normal Orientation: AAOx4 [place] Coma Scale Eye Opening: Spontaneous [place] Coma Scale Verbal: Oriented [place] Coma Scale Motor: Obeys Commands [place] Coma Scale Total: 15 Speech: Normal Motor strength normal: LUE, RUE, LLE, RLE Sensory: Normal - Psychological Associated symptoms: Normal affect, Normal mood - Skin Skin Temperature: Warm Skin Moisture: Dry Skin Color: Normal Course - Re-evaluation Re-evalutation: 12/05/17 23:59 This is a well-appearing 36-year-old female patient with normal labs and normal CT scan. No evidence of diverticulitis. At this time we will give patient some prescriptions and warning signs. Patient advised if symptoms are getting worse or no better in 24 hours to begin the antibiotics and return in the emergency department for repeat evaluation. Patient verbalized understanding of these instructions at this time will be discharged in stable condition. 12/06/17 03:34 Of note, I did call patient back after she was discharged to state that it does appear that she has an ovarian cyst seen on CT scan. This could represent her pain. This was not in the conclusion of the radiology interpretation I explained to them that continue to follow the instructions that were given. - Vital Signs Vital signs: Temp Pulse Resp BP Pulse Ox 98.5 F 82 18 107/54 L 97 06/22/18 23:35 12/05/17 23:35 12/05/17 23:35 12/05/17 23:35 12/05/17 23:35 - Laboratory Result Diagrams: 12/05/17 19:32 12/05/17 19:32 Laboratory results interpreted by me: 12/05/17 12/05/17 19:32 19:32 RDW 14.5 H Ur Leukocyte Esterase TRACE H Discharge - Discharge Clinical Impression: Left lower quadrant abdominal pain of unknown etiology Condition: Good Disposition: HOME, SELF-CARE Instructions: Abdominal Pain ([facility]) Additional Instructions: If symptoms are getting worse or no better in the next 24 hours please return for repeat evaluation. Prescriptions: Ciprofloxacin HCl [Cipro 500 mg Tablet] 500 mg PO BID 10 Days #20 tablet Metronidazole [Flagyl 500 mg Tablet] 500 mg PO TID 10 Days #30 tablet Referrals: MATTEO DONAHUE PA-C [[employer] [facility]ESSIONAL] - Follow up as needed
[2017-12-05 23:36] VITALS: BP 107/54
== END 2017-12-05 23:36 | disposition home or self-care (01) ==
LOC: ER 18:39
DX: R10.32 Left lower quadrant pain (principal); R11.0 Nausea; Z87.19 Personal history of other diseases of the digestive system; Z90.49 Acquired absence of other specified parts of digestive tract
CPT/HCPCS: 99284; 96361; 96374; 36415; 83690; 85025; 81025; 80053; 81001; 74177; J2765; J7030

== ENCOUNTER 2018-06-19 16:19 | Emergency (ER) | payer BC ==
[2018-06-19] MEDS ORDERED: HYDROCODONE/ACETAMINOPHEN 5-325 MG TABLET PO ONE (17:28)
--- NOTE | 2018-06-19 17:29 | ER Document Report ---
ED Medical Screen (RME) - General Chief Complaint: Back Pain Stated Complaint: BACK/SHOULDER/NECK PAIN Time Seen by Provider: 06/19/18 17:24 Mode of Arrival: Ambulatory Information source: Patient Notes: Patient complains of tender swollen area to right thoracic back that she states developed over the past 3 days. Patient denies any fever. She went to an urgent care and had an x-ray performed and was advised that she needed to come here for ultrasound or CT imaging of the area. I have greeted and performed a rapid initial assessment of this patient. A comprehensive ED assessment and evaluation of the patient, analysis of test results and completion of the medical decision making process will be conducted by additional ED providers. TRAVEL OUTSIDE OF THE [place] IN LAST 30 DAYS: No - Related Data Allergies/Adverse Reactions: No Known Allergies Allergy (Verified 06/19/18 17:21) Past Medical History - Social History Chew tobacco use (# tins/day): No Frequency of alcohol use: None Drug Abuse: None - Past Medical History Cardiac Medical History: Denies: Hx Atrial Fibrillation, Hx Congestive Heart Failure, Hx Coronary Artery Disease, Hx Heart Attack, Hx Hypercholesterolemia, Hx Hypertension, Hx Peripheral Vascular Disease, Hx Heart Murmur Renal/ Medical History: Denies: Hx Ovarian Cysts, Hx Peritoneal Dialysis, Hx Pelvic Inflammatory Disease Malignancy Medical History: Denies: Hx Breast Cancer, Hx Cervical Cancer, Hx Ovarian Cancer GI Medical History: Reports: Hx Colonoscopy - Found polyps in 2006. Denies: Hx Ulcerative Colitis Psychiatric Medical History: Denies: Hx Depression Past Surgical History: Reports: Hx Bowel Surgery - bowel resection, Hx Gynecologic Surgery - Removal of fibroid 12/2015, Hx Tonsillectomy. Denies: Hx Appendectomy, Hx Section, Hx Cholecystectomy, Hx Coronary Artery Bypass Graft, Hx Gastric Bypass Surgery, Hx Herniorrhaphy, Hx Hysterectomy, Hx Mastectomy, Hx Pacemaker, Hx Tubal Ligation - Immunizations Hx Diphtheria, Pertussis, Tetanus Vaccination: Yes Physical Exam - Vital signs Vitals: Temp Pulse Resp BP Pulse Ox 98.5 F 91 16 117/69 98 06/19/18 16:32 06/19/18 16:32 06/19/18 16:32 06/19/18 16:32 06/19/18 16:32 - Back Back: Tender - Tenderness with a subtle fullness to right posterior thoracic back area Course - Vital Signs Vital signs: Temp Pulse Resp BP Pulse Ox 98.5 F 91 16 117/69 98 06/19/18 16:32 06/19/18 16:32 06/19/18 16:32 06/19/18 16:32 06/19/18 16:32
[2018-06-19] MEDS ORDERED: ONDANSETRON 4 MG TAB.RAPDIS PO ONE (17:48)
--- NOTE | 2018-06-19 18:43 | RADIOLOGY REPORT (SQ) ---
EXAM DESCRIPTION: U/S CHEST COMPLETED DATE/TIME: 06/19/2018 6:21 pm REASON FOR STUDY: swelling right posterior thoracic area COMPARISON: None. TECHNIQUE: Dynamic and static grayscale images acquired of the localized site of clinical concern an d recorded on PACS. Additional selected color Doppler and spectral images recorded. SITE OF CONCERN: Right posterior upper back LIMITATIONS: None. FINDINGS: SKIN AND SUBCUTANEOUS TISSUES: No masses. No fluid collections. No edema. No foreign ana s. DEEP SOFT TISSUES/MUSCLES: No masses. No fluid collections. No edema. VASCULAR: No increased or decreased vascularity. No occlusions. OTHER: No other significant finding. IMPRESSION: NO SOFT TISSUE MASS, FLUID COLLECTION, OR FOREIGN BODY. TECHNICAL DOCUMENTATION: JOB ID: [id number] [employer]- All Rights Reserved Reading location - IP/workstation name: [email or web address]
[2018-06-19] MEDS ORDERED: LIDOCAINE 5% (700 MG) TRANSDERMAL ADH..PATCH TP ONE (22:35)
--- NOTE | 2018-06-19 22:46 | ER Document Report ---
ED General - General Chief Complaint: Back Pain Stated Complaint: BACK/SHOULDER/NECK PAIN Time Seen by Provider: 06/19/18 17:24 Mode of Arrival: Ambulatory Notes: 37-year-old female presents to the emergency department for back pain in the right subscapular region and she states the pain started a couple of days ago. She has had recent illness where she has been coughing. She describes the pain as severe and sharp that radiates along her medial scapula border into her neck. She has she has taken both Tylenol and Motrin with no relief. She states she is only comfortable when she is laying on her side. she denies any trauma to the area. She denies any other illness. She denies shortness of breath or chest pain. She has no other symptoms. TRAVEL OUTSIDE OF THE [place] IN LAST 30 DAYS: No - Related Data Allergies/Adverse Reactions: No Known Allergies Allergy (Verified 06/19/18 17:21) Past Medical History - General Information source: Patient - Social History Smoking Status: Never Smoker Chew tobacco use (# tins/day): No Frequency of alcohol use: None Drug Abuse: None Family History: Reviewed & Not Pertinent Patient has suicidal ideation: No Patient has homicidal ideation: No - Past Medical History Cardiac Medical History: Denies: Hx Atrial Fibrillation, Hx Congestive Heart Failure, Hx Coronary Artery Disease, Hx Heart Attack, Hx Hypercholesterolemia, Hx Hypertension, Hx Peripheral Vascular Disease, Hx Heart Murmur Renal/ Medical History: Denies: Hx Ovarian Cysts, Hx Peritoneal Dialysis, Hx Pelvic Inflammatory Disease Malignancy Medical History: Denies: Hx Breast Cancer, Hx Cervical Cancer, Hx Ovarian Cancer GI Medical History: Reports: Hx Colonoscopy - Found polyps in 2006. Denies: Hx Ulcerative Colitis Psychiatric Medical History: Denies: Hx Depression Past Surgical History: Reports: Hx Bowel Surgery - bowel resection, Hx Gynecologic Surgery - Removal of fibroid 12/2015, Hx Tonsillectomy. Denies: Hx Appendectomy, Hx Section, Hx Cholecystectomy, Hx Coronary Artery Bypass Graft, Hx Gastric Bypass Surgery, Hx Herniorrhaphy, Hx Hysterectomy, Hx Mastectomy, Hx Pacemaker, Hx Tubal Ligation - Immunizations Hx Diphtheria, Pertussis, Tetanus Vaccination: Yes Review of Systems - Review of Systems Constitutional: See HPI EENT: No symptoms reported Cardiovascular: See HPI Respiratory: See HPI Gastrointestinal: No symptoms reported Genitourinary: No symptoms reported Female Genitourinary: No symptoms reported Musculoskeletal: See HPI Skin: No symptoms reported Hematologic/Lymphatic: No symptoms reported Neurological/Psychological: No symptoms reported Physical Exam - Vital signs Vitals: Temp Pulse Resp BP Pulse Ox 98.5 F 91 16 117/69 98 06/19/18 16:32 06/19/18 16:32 06/19/18 16:32 06/19/18 16:32 06/19/18 16:32 Course - Re-evaluation Re-evalutation: 06/19/18 22:47 37-year-old female with in her right subscapular area pain that started 2-3 days ago. She has endorsed recent illness with a cough. She was seen at an urgent care and a chest x-ray was performed where there was concern for some type of fluid and she was transferred to the emergency department. An sound of the right chest was performed which was negative. I requested Dr. Muñiz see the patient. He came and assessed the patient and confirm that this is a large muscle spasm most likely secondary to coughing from illness causing inflammatory changes. recommended getting a repeat chest x-ray to confirm that there was no other pathology as ultrasound was negative. Patient stated she did not want to wait around to get a chest x-ray so she declined. I explained to her that that was the concerned why the urgent care sent her over here in the first place but she still declined. Plan is to place a lidocaine patch and discharged home with instructions. - Vital Signs Vital signs: Temp Pulse Resp BP Pulse Ox 98.5 F 91 16 117/69 98 06/19/18 16:32 06/19/18 16:32 06/19/18 16:32 06/19/18 16:32 06/19/18 16:32 Discharge - Discharge Clinical Impression: Muscle spasm of back Condition: Good Disposition: HOME, SELF-CARE Instructions: Ice Packs ([facility]) Additional Instructions: You are seen in the emergency department this evening for back pain that is related to a muscle spasm. As my supervising physician explained, your recent illness and cough most likely triggere an inflammatory reaction that slowly got worse over time and then your muscle spontaneously went into spasm. You can apply ice packs to the site and use warm hot compresses at night. You can buy [id number] topical lidocaine patches that you can apply per the direction of package. These take Motrin 600 mg every 6 hours with food or milk [id number] for the next 2-3 days. Please follow-up with your primary care provider to get a consultation for physical therapy because this will be most beneficial for you to help resolve your symptoms.
[2018-06-19 22:57] VITALS: BP 103/67
== END 2018-06-19 22:57 | disposition home or self-care (01) ==
LOC: ER 16:19
DX: M62.830 Muscle spasm of back (principal); R05 Cough
CPT/HCPCS: 99284; 76604; S0119